=== PATIENT | female | born 1965 | race Two or more races ===

== ENCOUNTER 2018-05-06 20:30 | Inpatient (IN) | payer OTHER, MEDICAID ==
[~2018-05-06] VITALS: Ht 157.5 cm; Wt 59.1 kg
[~2018-05-06 20:30] MED LIST: /ZOLP6ER; AMBI10TA PO; CLON0.5T8 PO; EFFE75CA2 PO; HYDR-3363 PO; HYDR10TA3; KLON1TAB; KLON1TAB PO; KLON2TAB PO; MINI1CAP PO; MINI2CAP PO; MIRA3350 PO; PAXI20TA3 PO; PRESTIQ; SERO200T; SERT25TA PO; TRAZO50TA PO
[2018-05-06] MEDS ORDERED: SERT-155 PO (20:50)
[2018-05-06] MEDS ORDERED: CLON2TAB7 PO (20:50)
[2018-05-06] MEDS ORDERED: ZOLP10TA2 PO (20:50)
[2018-05-06] MEDS ORDERED: BUPR100T3 (20:50)
[2018-05-06 21:27] LABS: HEMATOCRIT 38.2 % (36.0-47.0); HEMOGLOBIN 12.3 g/dl (12.0-15.5); MEAN CORPUSCULAR HEMOGLOBIN 26.8 pg (27.0-33.0); MEAN CORPUSCULAR HGB CONC 32.2 g/dl (32.0-36.5); MEAN CORPUSCULAR VOLUME 83.2 fl (80.0-96.0); PLATELET COUNT, AUTOMATED 213 10^3/uL (150-450); RED BLOOD COUNT 4.59 10^6/uL (4.00-5.40); WHITE BLOOD COUNT 5.1 10^3/uL (4.0-10.0)
[2018-05-06] MEDS ORDERED: PRAZ1CAP PO (21:56)
[2018-05-06] MEDS ORDERED: BUPR15TA PO (21:59)
[2018-05-06 22:01] LABS: ACETAMINOPHEN LEVEL < 2.0 UG/ML (10.0-30.0); ALBUMIN 3.6 GM/DL (3.2-5.2); ALT/SGPT 15 U/L (12-78); BILIRUBIN,DIRECT 0.2 MG/DL (0.0-0.2); BILIRUBIN,TOTAL 0.7 MG/DL (0.2-1.0); BLOOD UREA NITROGEN 25 MG/DL (7-18); CALCIUM LEVEL 8.2 MG/DL (8.5-10.1); CARBON DIOXIDE LEVEL 28 MEQ/L (21-32); CHLORIDE LEVEL 108 MEQ/L (98-107); CREATININE FOR GFR 0.74 MG/DL (0.55-1.30); ETHYL ALCOHOL (ETHANOL) < 0.003 % (0.000-0.010); GLOMERULAR FILTRATION RATE > 60.0 (>51); GLUCOSE, FASTING 103 MG/DL (70-100); POTASSIUM SERUM 4.1 MEQ/L (3.5-5.1); SALICYLATE LEVEL 2.2 MG/DL (5.0-30.0); SODIUM LEVEL 143 MEQ/L (136-145); THYROID STIMULATING HORMONE 0.948 uIU/ML (0.358-3.740); TOTAL PROTEIN 6.6 GM/DL (6.4-8.2)
[2018-05-06 22:11] LABS: AMPHETAMINES LEVEL URINE NEGATIVE (NEGATIVE); BARBITURATES URINE NEGATIVE (NEGATIVE); BENZODIAZEPINES URINE NEGATIVE (NEGATIVE); CANNABINOIDS URINE NEGATIVE (NEGATIVE); COCAINE METABOLITE URINE NEGATIVE (NEGATIVE); METHADONE URINE NEGATIVE (NEGATIVE); OPIATES URINE NEGATIVE (NEGATIVE); PHENCYCLIDINE URINE NEGATIVE (NEGATIVE)
[2018-05-06] MEDS ORDERED: MAALOX 30 ML SUSP *UDC PO PRN (22:30)
[2018-05-06] MEDS ORDERED: MOM 30ML SUSPENSION UDC PO PRN (22:30)
[2018-05-06] MEDS ORDERED: traZODone 50 MG TAB PO PRN (22:30)
[2018-05-07 02:08] VITALS: BP 131/62
[2018-05-07] MEDS ORDERED: buPROPion **SR TABLET** (ZYBAN) 150MG PO SCH (09:00)
[2018-05-07 12:37] VITALS: BP 121/68
[2018-05-07] MEDS: SERTRALINE HCL 50 MG TAB PO SCH (13:21)
[2018-05-07] MEDS: buPROPion (WELLBUTRIN SR) 100 MG SR TAB PO SCH ×2 (13:21→21:52)
[2018-05-07] MEDS ORDERED: clonazePAM 1 MG TAB PO SCH (16:00)
[2018-05-07 18:29] VITALS: BP 107/58
[2018-05-07] MEDS ORDERED: PRAZOSIN 1 MG CAP PO SCH (21:00)
[2018-05-07] MEDS: PRAZOSIN 1 MG CAP PO SCH ×2 (21:00→21:10)
[2018-05-07] MEDS: clonazePAM 1 MG TAB PO PRN (21:52)
[2018-05-07] MEDS ORDERED: MOM 30ML SUSPENSION UDC PO PRN (22:30)
[2018-05-07] MEDS ORDERED: ACETAMINOPHEN TAB 650MG DOSE (2X325MG) PO PRN (22:30)
[2018-05-07] MEDS ORDERED: MAALOX 30 ML SUSP *UDC PO PRN (22:30)
[2018-05-07] MEDS ORDERED: traZODone 50 MG TAB PO PRN (22:30)
[2018-05-08 07:01] VITALS: BP 94/52
[2018-05-08] MEDS ORDERED: NICOTINE 21MG/24HR 1 EA TRANSDERMAL TD SCH (09:00)
[2018-05-08] MEDS: SERTRALINE HCL 50 MG TAB PO SCH (09:29)
[2018-05-08] MEDS: buPROPion (WELLBUTRIN SR) 100 MG SR TAB PO SCH ×2 (09:29→21:18)
[2018-05-08] MEDS: ACETAMINOPHEN TAB 650MG DOSE (2X325MG) PO PRN (09:35)
[2018-05-08] MEDS: clonazePAM 1 MG TAB PO PRN ×2 (09:39→21:19)
[2018-05-08 11:31] VITALS: BP 117/64
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
[2018-05-08 18:06] VITALS: BP 93/51
[2018-05-08 22:00] VITALS: BP 130/92
[2018-05-08 22:35] VITALS: BP 128/86
[2018-05-08] MEDS ORDERED: PRAZOSIN 1 MG CAP PO ONE (22:45)
[2018-05-09 03:00] VITALS: BP 105/56
[2018-05-09] MEDS: clonazePAM 1 MG TAB PO PRN ×3 (03:30→23:12)
[2018-05-09] MEDS: buPROPion (WELLBUTRIN SR) 100 MG SR TAB PO SCH ×2 (09:53→23:11)
[2018-05-09] MEDS: SERTRALINE HCL 50 MG TAB PO SCH (09:53)
[2018-05-09] MEDS: IBUPROFEN 400 MG TAB PO PRN (09:54)
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
--- NOTE | 2018-05-09 15:50 | HPE ---
DATE OF ADMISSION: 05/06/2018 HISTORY OF PRESENT ILLNESS: Please refer to psychiatric history and evaluation for further details on this admission. This examination and history is intended for medical issues, which may need treatment, followup or consultation on this 53-year-old female. ALLERGIES: CODEINE, ERYTHROMYCIN, MORPHINE, QUETIAPINE, TRAMADOL. HOME MEDICATIONS: - Ambien 10 mg by mouth at night - Wellbutrin 150 mg by mouth twice a day - clonazepam 2 mg by mouth four times a day - prazosin 1 mg at night - sertraline 50 mg by mouth daily PAST MEDICAL HISTORY: Cervical cancer, history of LEEP procedure, cerebral palsy, endometriosis, history of irritable bowel syndrome with constipation, history of chronic hepatitis C, history of substance abuse, tobacco abuse, anxiety, depression, posttraumatic stress disorder (PTSD), insomnia. PAST SURGICAL HISTORY: Surgery in 03/2007 for cerebral palsy. History of exploratory laparoscopy. Lysis of adhesions. Tonsillectomy. LEEP procedure. SOCIAL HISTORY: She is . She smokes 1 to 1-1/2 packs per day. ETOH is monthly one to two drinks. FAMILY HISTORY: Noncontributory. REVIEW OF SYSTEMS: Ten systems review was done. The patient was feeling well and had no specific complaints. No complaint of headache. No blurry or double vision. No fever. No chills. No tinnitus. No hoarseness. No difficulty swallowing. No lightheadedness. No vertigo. CARDIOVASCULAR: No complaints of chest pain, shortness of breath, palpitations, or edema. RESPIRATORY: No chronic cough. No sputum production. No hemoptysis. No orthopnea. No wheeze. GASTROINTESTINAL: No nausea, vomiting, diarrhea. No hematochezia. No melena. No complaints of abdominal pain. History of irritable bowel syndrome. GENITOURINARY: No hematuria, dysuria, frequency. MUSCULOSKELETAL: No joint redness or swelling. Peripheral pulses equal and palpable bilaterally. ENDOCRINE: No polyuria, polydipsia, polyphagia. HEMATOLOGIC: No history of anemia. NEUROLOGIC: No history of seizures. History of TBI, history of chronic migraines. PSYCHOLOGICAL: See psychiatric history and physical. PHYSICAL EXAMINATION: GENERAL: 53-year-old cooperative female in no acute distress. Height 66 inches, weight 59.9 kg, Body Mass Index (BMI) 23.8. The patient is alert and oriented. HEENT: Pupils are equal and reactive to light. Extraocular muscles intact. Sclerae clear. Conjunctivae normal. No facial asymmetry. Pharynx, gums and tongue pink and moist. Tongue is midline. NECK: Supple without lymphadenopathy, thyromegaly or goiter. Carotids 2+ without bruit. CHEST: Clear to auscultation without wheeze or retraction. HEART: Regular. ABDOMEN: Benign. Bowel sounds positive. GENITOURINARY/RECTAL: Not done. EXTREMITIES: No clubbing, cyanosis, and edema. IMPRESSION/PLAN: 1. Psychiatric plan per psychiatry. 2. Nicotine dependence, patch available. 3. Left anterior upper thigh, scabbed and no redness. 4. History of cerebral palsy.
--- NOTE | 2018-05-09 17:46 | MHIPN ---
DATE: 05/08/2018 CHIEF COMPLAINT: She feels a bit anxious. SUBJECTIVE: She is seen for followup. She indicates she slept a bit, but was disturbed by another patient's agitation last night. She says appetite is okay. Could not recall any nightmares. The prazosin was held as her blood pressure was quite low yesterday. MENTAL STATUS EXAMINATION: She is sitting up in bed, cooperative. There is no agitation. No psychomotor retardation. She is coherent. Affect is reactive. Denies any active suicidal thoughts or intents. No homicidal ideas or intents. Currently, no evidence of psychosis. Judgment and insight remain compromised. ASSESSMENT: 1. Posttraumatic stress disorder. 2. Benzodiazepine use disorder by history. 3. History of trauma. PLAN: I would suggest continuing current care, but we will look at holding off on the prazosin if her blood pressures remain low. It is preferable that she not get the prazosin on low pressures. She should be encouraged to participate in activities on the unit, and I would suggest looking for collateral information as well, particularly tomorrow, when the outpatient clinics are open. Continue clonazepam at the current dose for now. She will be seeing the treatment team, as well as the assigned psychiatrist tomorrow. VITAL SIGNS: Blood pressure 93/51, pulse 77, temperature is 98.9. We will discontinue the prazosin for now. This will be reassessed tomorrow.
[2018-05-10 06:53] VITALS: BP 101/57
[2018-05-10] MEDS: SERTRALINE HCL 50 MG TAB PO SCH (09:25)
[2018-05-10] MEDS: buPROPion (WELLBUTRIN SR) 100 MG SR TAB PO SCH (09:25)
[2018-05-10] MEDS: clonazePAM 1 MG TAB PO PRN ×2 (09:25→22:05)
--- NOTE | 2018-05-10 16:58 | MHIPN ---
DATE: 05/10/2018 VITAL SIGNS: Temperature 96.9, pulse 57, respirations 12, blood pressure 101/57. CURRENT MEDICATIONS: - Klonopin 2 mg three times a day as needed - Zoloft 50 mg in the morning - Wellbutrin SR 100 mg twice a day HISTORY OF PRESENT ILLNESS: This is a 53-year-old white female, , diagnosis of posttraumatic stress disorder (PTSD), benzodiazepine abuse disorder and cerebral palsy. The patient has a criminal history for selling crack cocaine. The patient is on parole and attended [facility] instead of going back to custodial for a 3 to 5 year period. The patient reports feeling depressed at the time of admission, feeling helpless and hopeless with suicidal ideation. This is due to various situational stressors, which have resolved. She does report a prominent history of PTSD, which appears to be her major diagnosis. The patient has a history of benzodiazepine abuse and surprisingly was placed back on Klonopin upon discharge from [facility]. The patient is educated that current medical practice is that benzodiazepines, such as clonazepam, are not recommended for treatment of PTSD especially with a history of abuse. The patient is vague about her anxiety symptoms. Since taking the high dose Klonopin on the unit, the patient is isolating to her room, spending most of her day in bed. Of interest is that the toxicology screen was negative for benzodiazepine despite being prescribed a high dosage prior to admission. The patient may be diverting her Klonopin supply. The patient is involved in [employer]. She sees a PHD psychologist/therapist and has a psychiatrist in the community. THe patient is currently being prescribed Wellbutrin 100 mg twice a day. Her second dosage is given at bedtime, which is contraindicated, as it is a stimulant and apparently is adversely affecting her sleep patterns. The patient does not like the Wellbutrin claiming that it gives her stiffness in her jaw. MENTAL STATUS EXAMINATION: The patient is seen with the psychiatric nurse. The patient laughs easily, she smiles easily. Depressive symptoms have resolved. She is not depressed or suicidal. Anxiety appears minimal. The patient does have trouble walking due to her cerebral palsy. She is not psychotic. Insight and judgment are poor. There are no current signs of dangerousness. The patient is currently not psychotic. No signs of organicity. DIAGNOSES: 1. Posttraumatic stress disorder (PTSD). 2. Benzodiazepine use disorder. 3. Cerebral palsy. PLAN: Discontinue the nighttime dose of Wellbutrin. Discharge home tomorrow back to the community. The patient was warned about the use of benzodiazepine not recommended for PTSD cases. The patient to restart low dose of Minipress. MTDD
[2018-05-10 18:00] VITALS: BP 119/73
[2018-05-10] MEDS ORDERED: PRAZOSIN 1 MG CAP PO SCH (21:00)
[2018-05-10 21:59] VITALS: BP 119/73
[2018-05-11] MEDS: IBUPROFEN 400 MG TAB PO PRN (01:20)
[2018-05-11] MEDS: ACETAMINOPHEN TAB 650MG DOSE (2X325MG) PO PRN (01:20)
[2018-05-11] MEDS ORDERED: IBUPROFEN 600 MG TAB PO ONE (06:15)
[2018-05-11 07:05] VITALS: BP 116/65
[2018-05-11] MEDS ORDERED: BUPR10TASR PO (08:20)
[2018-05-11] MEDS: SERTRALINE HCL 50 MG TAB PO SCH (09:00)
[2018-05-11] MEDS ORDERED: buPROPion (WELLBUTRIN SR) 100 MG SR TAB PO SCH (09:00)
--- NOTE | 2018-05-12 16:43 | MHDS ---
DATE OF ADMISSION: 05/06/2018 DATE OF DISCHARGE: 05/11/2018 VITAL SIGNS: Temperature 97.0, pulse 76, respirations 14, blood pressure 116/65. LABORATORY DATA: CBC and differential within normal limits except for low MCH at 26.8. Serum chemistry showed elevated chloride at 108, BUN elevated at 25, serum calcium was low at 8.2. Toxicology screen was negative including a negative benzodiazepine screen. DISCHARGE DIAGNOSES: 1. Posttraumatic stress disorder (PTSD). 2. Benzodiazepine sedative use disorder. 3. Cerebral palsy. 4. Depressive disorder unspecified. CHIEF COMPLAINT: Depression with suicidal ideation. HISTORY OF PRESENT ILLNESS: This is a 53-year-old white female, . She has a criminal history for selling crack cocaine. The patient is on parole and violated her parole requiring attendance at [facility] recently. The patient was off her benzodiazepines while at [facility], but was surprisingly placed back on her Klonopin upon discharge by her outpatient provider. Patient was seen at admission by Dr. Woody and then for followup by Dr. Orozco. Patient felt depressed at time of admission, feeling helpless and hopeless. Patient had various situational stressors which have resolved. Her primary diagnosis is that of PTSD. Patient is warned that benzodiazepines, such as Klonopin, are contraindicated for patients with PTSD. Also of interest is that her benzodiazepine screen at time of admission was negative, suggesting that she is diverting her clonazepam. PROGRESS ON THE UNIT: Patient was prescribed Klonopin 2 mg three times a day by Dr. Woody. The patient subsequently spent most of her admission in bed sedated. She spent little time attending groups or interacting with her peers. Patient was confronted about her benzodiazepine use and abuse, but she minimized it. She adamantly demanded the clonazepam, insisting that she needed to take it. In any event, the patient's depressive symptoms quickly resolved on the unit, her situational stressors resolved, her affect improved markedly, and she appeared appropriate for outpatient treatment. MENTAL STATUS EXAMINATION: At time of discharge, mood and affect appeared quite good, affect was bright, she was not depressed, she was not suicidal, she was not homicidal. Insight and judgment appeared limited, but no acute signs of dangerousness. Patient showed no signs of psychosis, she was not hearing voices, no paranoia or thought disorder. Grooming and hygiene appeared good. Memory functions appeared intact. The patient does have cerebral palsy and was able to navigate reasonably well. ASSESSMENT: The patient appears to have reached maximal hospital benefit. It is my professional recommendation that her outpatient provider wean her off the benzodiazepines. PLAN: Patient discharged to outpatient mental health services.
[2018-05-19] MEDS ORDERED: BUPR100T3 PO (21:14)
[2018-05-24] MEDS ORDERED: SERT-138 PO (08:49)
[2018-05-24] MEDS ORDERED: MINI1CAP PO (08:49)
[2018-05-27] MEDS ORDERED: PRAZ1CAP PO (21:15)
[2018-05-27] MEDS ORDERED: SERT-138 PO (21:16)
== END 2018-05-11 11:40 | disposition home or self-care (01) | DRG 882 ==
LOC: M ED 20:30 → M ED INP 22:29 → M PSY 05-07 01:12
PROVIDERS: ADMIT Psychiatry & Neurology Psychiatry; ATTEND Psychiatry & Neurology Psychiatry
DX: F43.10 Post-traumatic stress disorder, unspecified (principal); R45.851 Suicidal ideations; G80.9 Cerebral palsy, unspecified; F32.9 Major depressive disorder, single episode, unspecified; F13.90 Sedative, hypnotic, or anxiolytic use, unspecified, uncomplicated; Z88.5 Allergy status to narcotic agent; Z88.8 Allergy status to other drugs, medicaments and biological substances; Z79.899 Other long term (current) drug therapy; F17.200 Nicotine dependence, unspecified, uncomplicated

== ENCOUNTER 2018-05-14 21:02 | Inpatient (IN) | payer OTHER, MEDICAID ==
[~2018-05-14] VITALS: Ht 160 cm; Wt 62.4 kg
[~2018-05-14 21:02] MED LIST changes: +BUPR100T3; +BUPR10TASR PO; +BUPR15TA PO; +CLON2TAB7 PO; +PRAZ1CAP PO; +SERT-155 PO; +ZOLP10TA2 PO
[2018-05-14 22:19] LABS: HEMATOCRIT 39.4 % (36.0-47.0); HEMOGLOBIN 12.6 g/dl (12.0-15.5); MEAN CORPUSCULAR HEMOGLOBIN 26.8 pg (27.0-33.0); MEAN CORPUSCULAR VOLUME 83.8 fl (80.0-96.0); PLATELET COUNT, AUTOMATED 204 10^3/uL (150-450)
[2018-05-14] MEDS ORDERED: AMBI10TA PO (22:35)
[2018-05-14 22:50] LABS: ACETAMINOPHEN LEVEL < 2.0 UG/ML (10.0-30.0); ALBUMIN 3.7 GM/DL (3.2-5.2); ALT/SGPT 16 U/L (12-78); BILIRUBIN,DIRECT 0.2 MG/DL (0.0-0.2); BILIRUBIN,TOTAL 0.7 MG/DL (0.2-1.0); BLOOD UREA NITROGEN 21 MG/DL (7-18); CALCIUM LEVEL 8.2 MG/DL (8.5-10.1); CARBON DIOXIDE LEVEL 25 MEQ/L (21-32); CHLORIDE LEVEL 108 MEQ/L (98-107); CREATININE FOR GFR 1.09 MG/DL (0.55-1.30); ETHYL ALCOHOL (ETHANOL) 0.003 % (0.000-0.010); GLOMERULAR FILTRATION RATE 56.3 (>51); GLUCOSE, FASTING 145 MG/DL (70-100); POTASSIUM SERUM 3.9 MEQ/L (3.5-5.1); SALICYLATE LEVEL 1.7 MG/DL (5.0-30.0); SODIUM LEVEL 143 MEQ/L (136-145); TOTAL PROTEIN 6.8 GM/DL (6.4-8.2)
[2018-05-14 22:52] LABS: AMPHETAMINES LEVEL URINE NEGATIVE (NEGATIVE); BARBITURATES URINE NEGATIVE (NEGATIVE); BENZODIAZEPINES URINE POSITIVE (NEGATIVE); CANNABINOIDS URINE NEGATIVE (NEGATIVE); COCAINE METABOLITE URINE NEGATIVE (NEGATIVE); METHADONE URINE NEGATIVE (NEGATIVE); OPIATES URINE NEGATIVE (NEGATIVE); PHENCYCLIDINE URINE NEGATIVE (NEGATIVE)
[2018-05-14] MEDS ORDERED: traZODone 50 MG TAB PO PRN (23:30)
[2018-05-14] MEDS ORDERED: ACETAMINOPHEN TAB 650MG DOSE (2X325MG) PO PRN (23:30)
[2018-05-14] MEDS ORDERED: MOM 30ML SUSPENSION UDC PO PRN (23:30)
[2018-05-14] MEDS ORDERED: MAALOX 30 ML SUSP *UDC PO PRN (23:30)
[2018-05-14] MEDS ORDERED: GI COCKTAIL 50ML BTL(HYOSCYAMINE/MAALOX/LIDOCAINE VISCOUS)(1:3:1) As Ordered ONE (23:34)
[2018-05-14] MEDS ORDERED: BUPR100T3 PO (23:39)
[2018-05-14] MEDS ORDERED: GI COCKTAIL 50ML BTL(HYOSCYAMINE/MAALOX/LIDOCAINE VISCOUS)(1:3:1) PO ONE (23:45)
[2018-05-15 00:13] VITALS: BP 110/66
[2018-05-15] MEDS: clonazePAM 0.5 MG TAB PO PRN ×2 (15:29→21:55)
[2018-05-15] MEDS: SERTRALINE HCL 50 MG TAB PO SCH (15:29)
[2018-05-15 18:00] VITALS: BP 96/52
[2018-05-15 20:55] VITALS: BP 106/64
[2018-05-15] MEDS ORDERED: PRAZOSIN 1 MG CAP PO SCH (21:00)
[2018-05-15] MEDS ORDERED: zolPIDEM TARTRATE 10MG TAB PO SCH (21:00)
[2018-05-16 06:19] VITALS: BP 100/55
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
[2018-05-16] MEDS: SERTRALINE HCL 50 MG TAB PO SCH ×2 (09:00→10:00)
[2018-05-16] MEDS: clonazePAM 0.5 MG TAB PO PRN (09:59)
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
--- NOTE | 2018-05-17 20:27 | HPE ---
DATE OF ADMISSION: 05/14/2018 HISTORY OF PRESENT ILLNESS: Please refer to psychiatric history and evaluation for further details on this admission. This examination and history is intended for medical issues, which may need treatment, followup or consult on this 53-year-old female. ALLERGIES: CODEINE, ERYTHROMYCIN, MORPHINE, SEROQUEL, TRAMADOL. HOME MEDICATIONS: - bupropion 100 mg by mouth daily - clonazepam 2 mg by mouth three times a day - prazosin 3 mg by mouth at bedtime - sertraline 50 mg by mouth daily - zolpidem 10 mg by mouth daily SOCIAL HISTORY: She is . She smokes 1-1/2 packs of cigarettes per day. PAST MEDICAL HISTORY: 1. Cervical cancer. 2. History of a loop electrosurgical excision procedure (LEEP) procedure. 3. Cerebral palsy. 4. Endometriosis. 5. History of irritable bowel syndrome with constipation. 6. History of chronic hepatitis C. She had started treatment. Was not quite finished when she left assisted. She has a followup scheduled with Dr. Orlando. 7. History of substance abuse. 8. Tobacco abuse. 9. Anxiety. 10. Depression. 11. Post-traumatic stress disorder (PTSD). 12. Insomnia. PAST SURGICAL HISTORY: 1. Surgery for cerebral palsy 03/2007. 2. History of exploratory laparoscopy and lysis of adhesions. 3. Tonsillectomy. 4. Loop electrosurgical excision procedure (LEEP) procedure. FAMILY HISTORY: Family history is noncontributory. LABORATORY STUDIES: White blood cell (WBC): Hemoglobin and hematocrit (H and H), platelets normal. Sodium 143, potassium 3.9, chloride 108, CO2 25, anion gap 10, BUN 21, creatinine 1.09. Nonfasting glucose 145, calcium 8.2. Toxicology was positive for benzodiazepines. REVIEW OF SYSTEMS: A 10-systems review was done and was unremarkable. The patient had no specific complaints. PHYSICAL EXAMINATION: A 53-year-old cooperative female in no acute distress. Height: 63 inches. Weight 62.4 kg. Body mass index (BMI): 24.4. Blood pressure (BP) 110/66, pulse 83, respirations 14, temperature 97.3, oxygen saturation 97% on room air. The patient is alert and oriented times three. Pupils equal and react to light. Extraocular muscles (EOMs) intact. Cornea and sclerae clear. Conjunctiva is normal. No facial asymmetry. Pharynx, tongue and gums are pink and moist. Tongue is midline. Neck is supple without lymphadenopathy. No thyromegaly. No goiter. Carotids are 2+ without bruits. CHEST: Clear to auscultation with wheeze or retraction. HEART: Is regular. ABDOMEN: Benign. Bowel sounds positive. GENITOURINARY ()/RECTAL: Not done. EXTREMITIES: Show equal strength. No cyanosis, clubbing, or edema. Gait is a . SKIN: Is warm and dry. IMPRESSION AND PLAN: 1. Psychiatric plan per psychiatry. 2. History of cerebral palsy. 3. Nicotine dependence. Patch available. 4. The patient states that she started a hepatitis B series in the senior care. She states that she is due for her third dose. Discussed with her we would contact the senior care to see if we could obtain the dates of her injections and if it was due give her the third hepatitis B. 5. Chronic hepatitis C. Follow with Dr. Orlando.
[2018-05-19] MEDS ORDERED: BUPR100T3 PO (21:14)
[2018-05-24] MEDS ORDERED: SERT-138 PO (08:49)
[2018-05-24] MEDS ORDERED: MINI1CAP PO (08:49)
[2018-05-27] MEDS ORDERED: PRAZ1CAP PO (21:15)
[2018-05-27] MEDS ORDERED: SERT-138 PO (21:16)
== END 2018-05-16 14:00 | disposition home or self-care (01) | DRG 882 ==
LOC: M ED 21:02 → M ED INP 23:18 → M PSY 05-15 00:04
PROVIDERS: ADMIT Psychiatry & Neurology Psychiatry; ATTEND Psychiatry & Neurology Psychiatry
DX: F43.10 Post-traumatic stress disorder, unspecified (principal); R45.851 Suicidal ideations; F32.9 Major depressive disorder, single episode, unspecified; G80.9 Cerebral palsy, unspecified; F15.90 Other stimulant use, unspecified, uncomplicated; F41.9 Anxiety disorder, unspecified; G47.00 Insomnia, unspecified; F17.200 Nicotine dependence, unspecified, uncomplicated; B18.2 Chronic viral hepatitis C; Z85.41 Personal history of malignant neoplasm of cervix uteri

== ENCOUNTER 2018-05-19 18:41 | Inpatient (IN) | payer MEDICAID ==
[2018-05-19 19:18] LABS: HEMATOCRIT 37.6 % (36.0-47.0); HEMOGLOBIN 12.5 g/dl (12.0-15.5); MEAN CORPUSCULAR HEMOGLOBIN 27.4 pg (27.0-33.0); MEAN CORPUSCULAR HGB CONC 33.2 g/dl (32.0-36.5); MEAN CORPUSCULAR VOLUME 82.3 fl (80.0-96.0); PLATELET COUNT, AUTOMATED 203 10^3/uL (150-450); RED BLOOD COUNT 4.57 10^6/uL (4.00-5.40); RED CELL DISTRIBUTION WIDTH 13.6 % (11.5-14.5); WHITE BLOOD COUNT 8.4 10^3/uL (4.0-10.0)
[2018-05-19 19:48] LABS: ACETAMINOPHEN LEVEL < 2.0 UG/ML (10.0-30.0); ALBUMIN 3.9 GM/DL (3.2-5.2); ALBUMIN/GLOBULIN RATIO 1.22 (1.00-1.93); ALKALINE PHOSPHATASE 88 U/L (45-117); ALT/SGPT 17 U/L (12-78); ANION GAP 9 MEQ/L (8-16); AST/SGOT 25 U/L (7-37); BILIRUBIN,DIRECT 0.2 MG/DL (0.0-0.2); BILIRUBIN,TOTAL 0.7 MG/DL (0.2-1.0); BLOOD UREA NITROGEN 19 MG/DL (7-18); CALCIUM LEVEL 8.6 MG/DL (8.5-10.1); CARBON DIOXIDE LEVEL 26 MEQ/L (21-32); CHLORIDE LEVEL 106 MEQ/L (98-107); CREATININE FOR GFR 0.97 MG/DL (0.55-1.30); ETHYL ALCOHOL (ETHANOL) 0.004 % (0.000-0.010); GLOMERULAR FILTRATION RATE > 60.0 (>51); GLUCOSE, FASTING 135 MG/DL (70-100); SALICYLATE LEVEL < 1.7 MG/DL (5.0-30.0); SODIUM LEVEL 141 MEQ/L (136-145); TOTAL PROTEIN 7.1 GM/DL (6.4-8.2)
[2018-05-19 19:59] LABS: AMPHETAMINES LEVEL URINE NEGATIVE (NEGATIVE); BARBITURATES URINE NEGATIVE (NEGATIVE); BENZODIAZEPINES URINE POSITIVE (NEGATIVE); CANNABINOIDS URINE NEGATIVE (NEGATIVE); COCAINE METABOLITE URINE NEGATIVE (NEGATIVE); METHADONE URINE NEGATIVE (NEGATIVE); OPIATES URINE NEGATIVE (NEGATIVE); PHENCYCLIDINE URINE NEGATIVE (NEGATIVE)
[2018-05-19] MEDS: CALCIUM CARBONATE 500 MG CHEW U/D PO (20:35)
[2018-05-19] MEDS ORDERED: ACETAMINOPHEN TAB 650MG DOSE (2X325MG) PO (21:00)
[2018-05-19] MEDS ORDERED: MOM 30ML SUSPENSION UDC PO (21:00)
[2018-05-19] MEDS ORDERED: MAALOX 30 ML SUSP *UDC PO (21:00)
[2018-05-19] MEDS: PRAZOSIN 1 MG CAP PO (23:37)
[2018-05-19] MEDS: zolPIDEM TARTRATE 10MG TAB PO (23:38)
[2018-05-19] MEDS: buPROPion (WELLBUTRIN SR) 100 MG SR TAB PO (23:38)
[2018-05-19] MEDS: clonazePAM 1 MG TAB PO (23:38)
[2018-05-20] MEDS: CALCIUM CARBONATE 500 MG CHEW U/D PO (02:37)
[2018-05-20] MEDS: buPROPion (WELLBUTRIN SR) 100 MG SR TAB PO (09:00)
[2018-05-20] MEDS: clonazePAM 1 MG TAB PO ×2 (09:19→22:02)
[2018-05-20] MEDS: SERTRALINE HCL 50 MG TAB PO (09:19)
[2018-05-20] MEDS: ONDANSETRON 4 MG ORAL DISINTEGRATING TAB (Q0162 PER 1MG) PO ×2 (10:09→21:30)
[2018-05-20] MEDS: EXCEDRIN MIGRAINE TABLET PO (10:14)
[2018-05-20 11:29] LABS: HCG, SERUM QUALITATIVE NEGATIVE (NEGATIVE)
[2018-05-20 11:30] LABS: CONTROL LINE HCG INT CTR LINE PRESENT
[2018-05-20] MEDS ORDERED: clonazePAM 1 MG TAB PO (16:09)
[2018-05-20] MEDS: zolPIDEM TARTRATE 10MG TAB PO (22:02)
[2018-05-20] MEDS: PRAZOSIN 1 MG CAP PO (22:02)
[2018-05-21] MEDS: SERTRALINE 100 MG TAB PO (09:00)
[2018-05-21] MEDS ORDERED: clonazePAM 1 MG TAB PO (09:00)
[2018-05-21] MEDS: clonazePAM 0.5 MG TAB PO ×2 (09:38→15:53)
[2018-05-21] MEDS: zolPIDEM TARTRATE 10MG TAB PO (20:20)
[2018-05-21] MEDS: EXCEDRIN MIGRAINE TABLET PO (20:20)
[2018-05-21] MEDS: PRAZOSIN 1 MG CAP PO (20:22)
[2018-05-21] MEDS: clonazePAM 1 MG TAB PO (20:40)
[2018-05-21] MEDS ORDERED: CALCIUM CARBONATE 500 MG CHEW U/D PO (21:15)
[2018-05-22] MEDS: LORazepam 2 MG TAB PO (03:23)
[2018-05-22] MEDS: diphenhydrAMINE 50 MG CAP PO (03:24)
[2018-05-22] MEDS: HALOPERIDOL 10 MG TAB PO (03:24)
[2018-05-22] MEDS: clonazePAM 1 MG TAB PO ×3 (09:00→22:08)
[2018-05-22] MEDS: SERTRALINE 100 MG TAB PO (16:09)
[2018-05-22] MEDS: zolPIDEM TARTRATE 10MG TAB PO (22:08)
[2018-05-22] MEDS: PRAZOSIN 1 MG CAP PO (22:12)
[2018-05-23] MEDS: clonazePAM 1 MG TAB PO ×3 (10:09→21:00)
[2018-05-23] MEDS: SERTRALINE 100 MG TAB PO (10:09)
[2018-05-23] MEDS: IBUPROFEN 400 MG TAB PO (10:10)
[2018-05-23] MEDS: zolPIDEM TARTRATE 10MG TAB PO (21:00)
[2018-05-23] MEDS: PRAZOSIN 1 MG CAP PO (21:00)
[2018-05-24] MEDS: EXCEDRIN MIGRAINE TABLET PO (05:56)
[2018-05-24] MEDS: clonazePAM 1 MG TAB PO (08:56)
[2018-05-24] MEDS: SERTRALINE 100 MG TAB PO (08:56)
== END 2018-05-24 11:15 | disposition home or self-care (01) | DRG 755 ==
LOC: M PSY 05-20 22:18 → M ED 18:41 → M ED INP 20:55 → M PSY 21:50
DX: F43.10 Post-traumatic stress disorder, unspecified (principal); F32.9 Major depressive disorder, single episode, unspecified; G80.9 Cerebral palsy, unspecified; F15.90 Other stimulant use, unspecified, uncomplicated; Z79.899 Other long term (current) drug therapy; Z88.5 Allergy status to narcotic agent; Z88.1 Allergy status to other antibiotic agents; Z88.8 Allergy status to other drugs, medicaments and biological substances; Z85.41 Personal history of malignant neoplasm of cervix uteri; F17.200 Nicotine dependence, unspecified, uncomplicated; F41.9 Anxiety disorder, unspecified; G47.00 Insomnia, unspecified; B18.2 Chronic viral hepatitis C; K59.00 Constipation, unspecified

== ENCOUNTER 2018-05-27 19:38 | Inpatient (IN) | payer MEDICAID ==
[2018-05-27 20:34] LABS: HEMATOCRIT 39.8 % (36.0-47.0); HEMOGLOBIN 12.7 g/dl (12.0-15.5); MEAN CORPUSCULAR HGB CONC 31.9 g/dl (32.0-36.5); MEAN CORPUSCULAR VOLUME 84.5 fl (80.0-96.0); PLATELET COUNT, AUTOMATED 196 10^3/uL (150-450); RED BLOOD COUNT 4.71 10^6/uL (4.00-5.40); RED CELL DISTRIBUTION WIDTH 13.7 % (11.5-14.5); WHITE BLOOD COUNT 6.2 10^3/uL (4.0-10.0)
[2018-05-27 21:09] LABS: AMPHETAMINES LEVEL URINE NEGATIVE (NEGATIVE); BARBITURATES URINE NEGATIVE (NEGATIVE); BENZODIAZEPINES URINE POSITIVE (NEGATIVE); CANNABINOIDS URINE NEGATIVE (NEGATIVE); COCAINE METABOLITE URINE NEGATIVE (NEGATIVE); METHADONE URINE NEGATIVE (NEGATIVE); OPIATES URINE NEGATIVE (NEGATIVE); PHENCYCLIDINE URINE NEGATIVE (NEGATIVE)
[2018-05-27 21:12] LABS: ACETAMINOPHEN LEVEL < 2.0 UG/ML (10.0-30.0); ALBUMIN 4.1 GM/DL (3.2-5.2); ALBUMIN/GLOBULIN RATIO 1.32 (1.00-1.93); ALKALINE PHOSPHATASE 86 U/L (45-117); ALT/SGPT 19 U/L (12-78); ANION GAP 9 MEQ/L (8-16); AST/SGOT 19 U/L (7-37); BILIRUBIN,DIRECT 0.2 MG/DL (0.0-0.2); BILIRUBIN,TOTAL 0.9 MG/DL (0.2-1.0); BLOOD UREA NITROGEN 15 MG/DL (7-18); CALCIUM LEVEL 8.7 MG/DL (8.5-10.1); CARBON DIOXIDE LEVEL 30 MEQ/L (21-32); CHLORIDE LEVEL 103 MEQ/L (98-107); CREATININE FOR GFR 1.14 MG/DL (0.55-1.30); ETHYL ALCOHOL (ETHANOL) < 0.003 % (0.000-0.010); GLOMERULAR FILTRATION RATE 53.5 (>51); GLUCOSE, FASTING 145 MG/DL (70-100); POTASSIUM SERUM 3.7 MEQ/L (3.5-5.1); SALICYLATE LEVEL < 1.7 MG/DL (5.0-30.0); SODIUM LEVEL 142 MEQ/L (136-145); TOTAL PROTEIN 7.2 GM/DL (6.4-8.2)
[2018-05-27] MEDS ORDERED: MOM 30ML SUSPENSION UDC PO (22:45)
[2018-05-27] MEDS ORDERED: MAALOX 30 ML SUSP *UDC PO (22:45)
[2018-05-27] MEDS ORDERED: zolPIDEM TARTRATE 5 MG TAB PO (22:45)
[2018-05-27] MEDS: GI COCKTAIL 50ML BTL(HYOSCYAMINE/MAALOX/LIDOCAINE VISCOUS)(1:3:1) PO (22:58)
[2018-05-28] MEDS ORDERED: PRAZOSIN 1 MG CAP PO (01:15)
[2018-05-28] MEDS ORDERED: zolPIDEM TARTRATE 5 MG TAB PO (01:30)
[2018-05-28] MEDS: zolPIDEM TARTRATE 10MG TAB PO ×2 (01:38→21:00)
[2018-05-28] MEDS: clonazePAM 1 MG TAB PO ×4 (01:44→21:00)
[2018-05-28] MEDS: SERTRALINE 100 MG TAB PO (09:00)
[2018-05-28] MEDS ORDERED: ACETAMINOPHEN TAB 650MG DOSE (2X325MG) PO ×2 (10:00→10:15)
[2018-05-28] MEDS: EXCEDRIN MIGRAINE TABLET PO (10:14)
[2018-05-28] MEDS: buPROPion **XL** TABLET 150MG (WELLBUTRIN XL) PO (15:59)
[2018-05-28] MEDS: CALCIUM CARBONATE 500 MG CHEW U/D PO (15:59)
[2018-05-28] MEDS: PRAZOSIN 1 MG CAP PO (21:00)
[2018-05-29] MEDS: CALCIUM CARBONATE 500 MG CHEW U/D PO ×2 (03:13→08:56)
[2018-05-29] MEDS: PRAZOSIN 1 MG CAP PO ×2 (03:35→21:56)
[2018-05-29] MEDS: clonazePAM 1 MG TAB PO ×3 (08:56→21:55)
[2018-05-29] MEDS: buPROPion **XL** TABLET 150MG (WELLBUTRIN XL) PO (08:57)
[2018-05-29] MEDS: zolPIDEM TARTRATE 10MG TAB PO (21:55)
[2018-05-30] MEDS: EXCEDRIN MIGRAINE TABLET PO (04:53)
[2018-05-30] MEDS: buPROPion **XL** TABLET 150MG (WELLBUTRIN XL) PO (09:25)
[2018-05-30] MEDS: clonazePAM 1 MG TAB PO ×3 (09:25→23:38)
[2018-05-30] MEDS: zolPIDEM TARTRATE 10MG TAB PO (23:38)
[2018-05-30] MEDS: PRAZOSIN 1 MG CAP PO (23:39)
[2018-05-31] MEDS: HALOPERIDOL 5 MG TAB PO (00:08)
[2018-05-31] MEDS: buPROPion **XL** TABLET 150MG (WELLBUTRIN XL) PO (08:00)
[2018-05-31] MEDS: clonazePAM 1 MG TAB PO ×3 (08:00→20:04)
[2018-05-31] MEDS: zolPIDEM TARTRATE 10MG TAB PO (20:04)
[2018-05-31] MEDS: PRAZOSIN 1 MG CAP PO (20:04)
[2018-06-01] MEDS: clonazePAM 1 MG TAB PO ×3 (08:14→21:24)
[2018-06-01] MEDS: buPROPion **XL** TABLET 150MG (WELLBUTRIN XL) PO (08:14)
[2018-06-01] MEDS: PRAZOSIN 1 MG CAP PO (21:24)
[2018-06-01] MEDS: zolPIDEM TARTRATE 10MG TAB PO (21:25)
[2018-06-02] MEDS: clonazePAM 1 MG TAB PO (08:28)
[2018-06-02] MEDS: INFLUENZA QUADRIVALENT PF VACCINE 0.5ML SYRINGE (90686) IM (08:38)
[2018-06-02] MEDS: IBUPROFEN 400 MG TAB PO (09:46)
== END 2018-06-02 10:50 | disposition home or self-care (01) | DRG 755 ==
LOC: M ED 19:38 → M ED INP 22:42 → M PSY 23:50
DX: F43.10 Post-traumatic stress disorder, unspecified (principal); R45.851 Suicidal ideations; G80.9 Cerebral palsy, unspecified; F32.9 Major depressive disorder, single episode, unspecified; Z88.5 Allergy status to narcotic agent; Z88.1 Allergy status to other antibiotic agents; Z88.8 Allergy status to other drugs, medicaments and biological substances; Z79.899 Other long term (current) drug therapy; B18.2 Chronic viral hepatitis C

== ENCOUNTER 2018-07-06 19:20 | Inpatient (IN) | payer OTHER, MEDICAID ==
[~2018-07-06] VITALS: Ht 160 cm; Wt 62.7 kg
[~2018-07-06 19:20] MED LIST changes: +BUPR100T3 PO; +SERT-138 PO
[2018-07-06] MEDS ORDERED: BUPR100T3 (19:38)
[2018-07-06 20:06] LABS: HEMATOCRIT 36.6 % (36.0-47.0); HEMOGLOBIN 11.6 g/dl (12.0-15.5); MEAN CORPUSCULAR HEMOGLOBIN 27.1 pg (27.0-33.0); MEAN CORPUSCULAR HGB CONC 31.7 g/dl (32.0-36.5); MEAN CORPUSCULAR VOLUME 85.5 fl (80.0-96.0); PLATELET COUNT, AUTOMATED 229 10^3/uL (150-450); RED BLOOD COUNT 4.28 10^6/uL (4.00-5.40); WHITE BLOOD COUNT 6.8 10^3/uL (4.0-10.0)
[2018-07-06 20:42] LABS: ACETAMINOPHEN LEVEL < 2.0 UG/ML (10.0-30.0); ALBUMIN 3.9 GM/DL (3.2-5.2); ALT/SGPT 11 U/L (12-78); BILIRUBIN,DIRECT 0.2 MG/DL (0.0-0.2); BILIRUBIN,TOTAL 0.6 MG/DL (0.2-1.0); BLOOD UREA NITROGEN 24 MG/DL (7-18); CALCIUM LEVEL 8.5 MG/DL (8.5-10.1); CARBON DIOXIDE LEVEL 29 MEQ/L (21-32); CHLORIDE LEVEL 106 MEQ/L (98-107); CREATININE FOR GFR 0.79 MG/DL (0.55-1.30); ETHYL ALCOHOL (ETHANOL) < 0.003 % (0.000-0.010); GLOMERULAR FILTRATION RATE > 60.0 (>51); GLUCOSE, FASTING 79 MG/DL (70-100); SALICYLATE LEVEL 2.6 MG/DL (5.0-30.0); SODIUM LEVEL 141 MEQ/L (136-145); TOTAL PROTEIN 6.8 GM/DL (6.4-8.2)
[2018-07-06 21:58] LABS: AMPHETAMINES LEVEL URINE NEGATIVE (NEGATIVE); BARBITURATES URINE NEGATIVE (NEGATIVE); BENZODIAZEPINES URINE NEGATIVE (NEGATIVE); CANNABINOIDS URINE NEGATIVE (NEGATIVE); COCAINE METABOLITE URINE NEGATIVE (NEGATIVE); METHADONE URINE NEGATIVE (NEGATIVE); OPIATES URINE NEGATIVE (NEGATIVE); PHENCYCLIDINE URINE NEGATIVE (NEGATIVE)
[2018-07-06] MEDS ORDERED: LORazepam 2 MG TAB PO STA (23:08)
[2018-07-06] MEDS ORDERED: GI COCKTAIL 50ML BTL(HYOSCYAMINE/MAALOX/LIDOCAINE VISCOUS)(1:3:1) PO ONE (23:45)
[2018-07-07] MEDS ORDERED: clonazePAM 1 MG TAB PO ONE (07:30)
[2018-07-07] MEDS: NICOTINE 21MG/24HR 1 EA TRANSDERMAL TD SCH (09:00)
[2018-07-07] MEDS ORDERED: MAALOX 30 ML SUSP *UDC PO PRN (12:30)
[2018-07-07] MEDS ORDERED: ACETAMINOPHEN TAB 650MG DOSE (2X325MG) PO PRN (12:30)
[2018-07-07] MEDS ORDERED: MOM 30ML SUSPENSION UDC PO PRN (12:30)
[2018-07-07] MEDS ORDERED: OLANZapine 5 MG TAB PO PRN (12:30)
[2018-07-07 13:48] VITALS: BP 137/86
[2018-07-07] MEDS ORDERED: LORazepam 2 MG TAB PO PRN (14:30)
[2018-07-07] MEDS ORDERED: PRAZOSIN 1 MG CAP PO PRN (14:30)
[2018-07-07] MEDS: buPROPion (WELLBUTRIN SR) 100 MG SR TAB PO SCH (21:00)
[2018-07-08 07:47] VITALS: BP 115/55
--- NOTE | 2018-07-08 08:50 | HPEPDOC ---
[facility] Medical History & Physical History and Physical PCP: None ATTENDING: Dr. Jenaro Owens HPI: 53yoF admitted to [facility] for unspecifie mood disorder being medically examined today. The pt provided limited history, she is agitated throughout exam. Denies any fevers, chills, weakness, fatigue, ROGERS, CP, SOB, cough, palpitations, abdominal pain, N/V/D or changes in bowel or bladder habits. PMHx: Cervical cancer/history of LEEP procedure Cerebral palsy Endometriosis History of IBS with constipation History of chronic hepatitis C-as per records, she had started treatment and had not yet finished when she left [facility], had f/u scheduled with ID, Dr Orlando. History of substance use Tobacco use Anxiety depression History of SI/HI Night terrors PTSD Insomnia PSHX: Surgery 2007 lower extremities for cerebral palsy History of exploratory laparoscopies/Lysis of adhesions Tonsillectomy LEEP procedure SOCHX: Resides in: [facility]. Marital Status: Employment: Unemployed Tobacco use: One pack per day ETOH: Denies Illicit Drugs: Denies IV Drug Use: Denies FAMHX: Mother: Pt states "I don't know" Father: Pt states "I don't know" Siblings: 1 brother recently unknown cause per pt. Children: 4 Alive ROS: As noted in HPI, otherwise 11pt ROS of systems reviewed and remarkable only for postmenopausal per pt. PE: GEN: 53yoF, appears stated age. Well-nourished, well developed. No acute distress. Alert and oriented x 3. Agitated. HEENT: Normocephalic, atraumatic. Pupils are equal, round, and reactive to light. Extraocular movements are intact. No nystagmus appreciated. Sclera are nonicteric. Conjunctiva without injection. Nose midline. Nasal turbinates without bogginess. EACs both patent BL. TMs both visualized and chery with good cone of light, no bulging or erythema. No facial asymmetry. Moist mucous membranes. Dentition fair. Pharynx pink and moist, no cobblestoning. Neck supple, trachea midline. No lymphadenopathy or thyromegaly appreciated. CHEST: Regular rate and rhythm, +S1, +S2 LUNGS: Clear to auscultation bilaterally. No wheezes, rales, or rhonchi. Zulema thing appears symmetric and easy. Patient is speaking in full sentences. No accessory muscle use. ABD: Round, soft, non-tender, non-distended. +Bowel sounds throughout. No rebound or guarding. No costovertebral angle tenderness. EXT: Pulses 2+ bilaterally dorsalis pedis and radial. No lower extremity edema appreciated. SKIN: Porum, dry, warm. Capillary refill <2sec. No rashes. NEURO: Alert and oriented x 3. Cranial nerves III-XII are intact. Pt with h/o CP, no assitive devices for ambulation. EKG: SINUS RHYTHM COMPARED TO THE LAST 2 TRACINGS IN THE SYSTEM, ST-T ABNORMALITY IS NO LONGER PRESENT Electronically Signed On 05-21-2018 0:21:46 EST by Vinicio Bear A&P: 53yoF admitted to [facility] for unspecifie mood disorder 1. Psych. Plan per Psychiatry. EKG on file. 2. Nicotine dependence. Patch available. 3. History of chronic hepatitis C. The patient had apparently started treatment for hepatitis C. The patient was to follow-up with infectious disease but states she has not yet had appt. Arrange ID follow-up at discharge. LFTs are noted within normal limits. 4. History of cerebral palsy 5. History of IBS with constipation. Bowel care as needed. 6. Follow up. No Primary Care Provider. Will attempt to establish PCP on discharge. 7. Staff member Sharita Multani RN present throughout exam. Vital Signs Vital Signs Date Time Temp Pulse Resp B/P (MAP) Pulse Ox O2 Delivery O2 Flow Rate FiO2 07/08/18 07:47 97.3 66 16 115/55 (75) 07/07/18 13:48 97 07/07/18 12:54 Room Air Laboratory Data Labs 24H Item Value Date Time White Blood Count 6.8 10^3/uL 07/06/181957 Red Blood Count 4.28 10^6/uL 07/06/181957 Hemoglobin 11.6 g/dl L 07/06/181957 Hematocrit 36.6 % 07/06/181957 Mean Corpuscular Volume 85.5 fl 07/06/181957 Mean Corpuscular Hemoglobin 27.1 pg 07/06/181957 Mean Corpuscular Hemoglobin Concent 31.7 g/dl L 07/06/181957 Red Cell Distribution Width 14.7 % H 07/06/181957 Platelet Count 229 10^3/uL 07/06/181957 Sodium Level 141 MEQ/L 07/06/181957 Potassium Level 4.0 MEQ/L 07/06/181957 Chloride Level 106 MEQ/L 07/06/181957 Carbon Dioxide Level 29 MEQ/L 07/06/181957 Anion Gap 6 MEQ/L L 07/06/181957 Blood Urea Nitrogen 24 MG/DL H 07/06/181957 Creatinine 0.79 MG/DL 07/06/181957 Glomerular Filtration Rate > 60.0 07/06/181957 Fasting Glucose 79 MG/DL 07/06/181957 Calcium Level 8.5 MG/DL 07/06/181957 Total Bilirubin 0.6 MG/DL 07/06/181957 Direct Bilirubin 0.2 MG/DL 07/06/181957 Aspartate Amino Transf (AST/SGOT) 14 U/L 07/06/181957 Alanine Aminotransferase (ALT/SGPT) 11 U/L L 07/06/181957 Alkaline Phosphatase 74 U/L 07/06/181957 Total Protein 6.8 GM/DL 07/06/181957 Albumin 3.9 GM/DL 07/06/181957 Albumin/Globulin Ratio 1.34 07/06/181957 Thyroid Stimulating Hormone (TSH) 1.180 uIU/ML 07/06/181957 Salicylates Level 2.6 MG/DL L 07/06/181957 Urine Opiates Screen NEGATIVE 07/06/182112 Urine Methadone Screen NEGATIVE 07/06/182112 Acetaminophen Level < 2.0 UG/ML L 07/06/181957 Urine Barbiturates Screen NEGATIVE 07/06/182112 Urine Phencyclidine Screen NEGATIVE 07/06/182112 Urine Amphetamines Screen NEGATIVE 07/06/182112 Urine Benzodiazepines Screen NEGATIVE 07/06/182112 Urine Cocaine Metabolite Screen NEGATIVE 07/06/182112 Urine Cannabinoids Screen NEGATIVE 07/06/182112 Ethyl Alcohol Level < 0.003 % 07/06/181957 Home Medications Scheduled Clonazepam (Clonazepam) 2 Mg Tab, 2 MG PO TID Sertraline HCl (Sertraline HCl) 100 Mg Tab, 100 MG PO DAILY Zolpidem Tartrate (Ambien) 10 Mg Tab, 10 MG PO QHS Scheduled PRN Prazosin Hcl (Prazosin HCl) 1 Mg Cap, 1 MG PO QHS PRN for NIGHTMARES Miscellaneous Medications (Bupropion HCl Sr) 100 Mg Tab Allergies Coded Allergies: Codeine (Verified Allergy, Severe, CAN TAKE PERCOCET, 05/14/18) throat swelling Erythromycin (Verified Allergy, Severe, throat closing, 05/14/18) Morphine (Verified Allergy, Severe, throat closing, 05/14/18) Tramadol (Verified Allergy, Severe, throat closing, 05/14/18) Trazodone (Verified Allergy, Severe, Anaphylactic reaction, 05/14/18) Anaphylactic reaction Quetiapine (Verified Adverse Reaction, Intermediate, Cardiac issues, 05/14/18) Gissel Rajan Jul 08, 2018 08:50
[2018-07-08] MEDS: buPROPion (WELLBUTRIN SR) 100 MG SR TAB PO SCH (08:55)
[2018-07-08] MEDS: NICOTINE 21MG/24HR 1 EA TRANSDERMAL TD SCH (09:00)
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
== END 2018-07-08 13:15 | disposition home or self-care (01) | DRG 882 ==
LOC: M ED 19:20 → M ED INP 07-07 12:27 → M PSY 07-07 13:00
PROVIDERS: ADMIT Psychiatry & Neurology Psychiatry; ATTEND Psychiatry & Neurology Psychiatry
DX: F43.10 Post-traumatic stress disorder, unspecified (principal); G80.9 Cerebral palsy, unspecified; F60.3 Borderline personality disorder; Z63.4 Disappearance and death of family member; F13.90 Sedative, hypnotic, or anxiolytic use, unspecified, uncomplicated; Z79.899 Other long term (current) drug therapy; Z88.5 Allergy status to narcotic agent; Z88.1 Allergy status to other antibiotic agents; Z88.8 Allergy status to other drugs, medicaments and biological substances; Z85.41 Personal history of malignant neoplasm of cervix uteri; B18.2 Chronic viral hepatitis C; F17.200 Nicotine dependence, unspecified, uncomplicated; F41.9 Anxiety disorder, unspecified; K59.00 Constipation, unspecified; G47.00 Insomnia, unspecified

== ENCOUNTER 2018-11-16 11:38 | Emergency (ER) | payer OTHER, MEDICAID ==
[~2018-11-16] VITALS: Ht 160 cm; Wt 62.7 kg
[~2018-11-16 11:38] MED LIST changes: -SERT25TA PO; +SERT25TA85 PO; +TRAZ1TAB6 PO; -TRAZO50TA PO
--- NOTE | 2018-11-16 12:24 | REP ---
Chest one-view HISTORY: Chest pain Comparison: 05/22/2018 The lungs are clear. The heart is normal in size. The pulmonary vasculature is normal in appearance. Impression: No acute disease. Electronically Signed by Tom Ayala MD 11/16/2018 12:16 P
[2018-11-16] MEDS ORDERED: NS 1,000 ML IV ONE (12:45)
[2018-11-16 12:59] LABS: BASO % 0.3 % (0.0-1.0); EOS # 0.1 10^3/uL (0.0-0.50); EOS % 0.6 % (0.0-3.0); HEMATOCRIT 38.1 % (36.0-47.0); HEMOGLOBIN 12.2 g/dl (12.0-15.5); LYMPH # 1.5 10^3/uL (1.5-4.5); LYMPH % 16.6 % (24.0-44.0); MEAN CORPUSCULAR HEMOGLOBIN 27.2 pg (27.0-33.0); MEAN CORPUSCULAR VOLUME 84.9 fl (80.0-96.0); MONO # 0.5 10^3/uL (0.0-0.8); MONO % 5.4 % (0.0-5.0); NEUTROPHILS % 76.9 % (36.0-66.0); PLATELET COUNT, AUTOMATED 226 10^3/uL (150-450); RED BLOOD COUNT 4.49 10^6/uL (4.00-5.40)
[2018-11-16 13:06] LABS: BLOOD UREA NITROGEN 29 MG/DL (7-18); CARBON DIOXIDE LEVEL 27 MEQ/L (21-32); CHLORIDE LEVEL 108 MEQ/L (98-107); CK-MB VALUE MASS < 1.0 NG/ML (<3.6); CPK CREATINE PHOSPHOKINASE 78 U/L (26-192); CREATININE FOR GFR 0.75 MG/DL (0.55-1.30); ETHYL ALCOHOL (ETHANOL) < 0.003 % (0.000-0.010); FREE THYROXINE INDEX 3.4 % (1.3-4.8); GLOMERULAR FILTRATION RATE > 60.0 (>51); GLUCOSE, FASTING 95 MG/DL (70-100); MAGNESIUM LEVEL 2.2 MG/DL (1.8-2.4); MB/CK RELATIVE INDEX 1.28 (< OR =4); POTASSIUM SERUM 4.4 MEQ/L (3.5-5.1); SODIUM LEVEL 142 MEQ/L (136-145); T UPTAKE 28 % (30-39); TROPONIN I < 0.02 NG/ML (< 0.10)
[2018-11-16 13:15] LABS: INR 0.91; PROTHROMBIN TIME 12.3 SECONDS (12.1-14.4)
[2018-11-16 14:14] LABS: AMPHETAMINES LEVEL URINE NEGATIVE (NEGATIVE); BARBITURATES URINE NEGATIVE (NEGATIVE); BENZODIAZEPINES URINE NEGATIVE (NEGATIVE); CANNABINOIDS URINE NEGATIVE (NEGATIVE); COCAINE METABOLITE URINE NEGATIVE (NEGATIVE); METHADONE URINE NEGATIVE (NEGATIVE); OPIATES URINE NEGATIVE (NEGATIVE); PHENCYCLIDINE URINE NEGATIVE (NEGATIVE)
[2018-11-16] MEDS ORDERED: ACETAMINOPHEN 325 MG TAB PO ONE (14:30)
[2018-11-16 15:00] VITALS: BP 128/66
--- NOTE | 2018-11-16 16:22 | ECGEPIP ---
[facility] - ED Test Date: 2018-11-16 Pat Name: STACIE VACA Department: Room: - Gender: Female Head Of [employer]: TC : 1965 Requested By: Rosa Marx Order Number: [id number] Reading MD: Rosa Marx Measurements Intervals [place] Rate: 73 P: 59 MN: 150 QRS: 47 QRSD: 82 T: 19 QT: 393 QTc: 433 Interpretive Statements SINUS RHYTHM NSTTW abnormalities DECREASED RATE 09/22/18 Electronically Signed on 11-16-2018 16:22:29 EDT by Rosa Marx
== END 2018-11-16 15:18 | disposition home or self-care (01) ==
LOC: EDBD 11:38 → M ED 11:38
DX: I49.9 Cardiac arrhythmia, unspecified (principal); R00.2 Palpitations; R06.02 Shortness of breath; Z72.0 Tobacco use; Z79.899 Other long term (current) drug therapy; Z88.5 Allergy status to narcotic agent; Z88.1 Allergy status to other antibiotic agents
CPT/HCPCS: 71045; 80048; 80307; 82550; 82553; 83735; 84436; 84443; 84479; 84484; 85025; 85610; 93005; 93041; 94760; 99285; G0480

== ENCOUNTER 2019-03-25 01:32 | Emergency (ER) | payer MEDICAID, OTHER ==
[~2019-03-25] VITALS: Ht 160 cm; Wt 62.7 kg
[~2019-03-25 01:32] MED LIST changes: -SERT-155 PO; +SERT50TA29 PO
[2019-03-25 02:30] LABS: HEMATOCRIT 39.6 % (36.0-47.0); MEAN CORPUSCULAR HEMOGLOBIN 27.8 pg (27.0-33.0); MEAN CORPUSCULAR HGB CONC 32.8 g/dl (32.0-36.5); MEAN CORPUSCULAR VOLUME 84.8 fl (80.0-96.0); PLATELET COUNT, AUTOMATED 250 10^3/uL (150-450); RED BLOOD COUNT 4.67 10^6/uL (4.00-5.40); WHITE BLOOD COUNT 7.5 10^3/uL (4.0-10.0)
[2019-03-25 03:03] LABS: ACETAMINOPHEN LEVEL < 2.0 UG/ML (10.0-30.0); ALBUMIN 3.7 GM/DL (3.2-5.2); ALT/SGPT 17 U/L (12-78); BILIRUBIN,DIRECT 0.1 MG/DL (0.0-0.2); BILIRUBIN,TOTAL 0.4 MG/DL (0.2-1.0); BLOOD UREA NITROGEN 28 MG/DL (7-18); CALCIUM LEVEL 8.5 MG/DL (8.5-10.1); CARBON DIOXIDE LEVEL 29 MEQ/L (21-32); CHLORIDE LEVEL 108 MEQ/L (98-107); ETHYL ALCOHOL (ETHANOL) < 0.003 % (0.000-0.010); GLOMERULAR FILTRATION RATE > 60.0 (>51); GLUCOSE, FASTING 104 MG/DL (70-100); POTASSIUM SERUM 4.3 MEQ/L (3.5-5.1); SALICYLATE LEVEL 2.3 MG/DL (5.0-30.0); SODIUM LEVEL 141 MEQ/L (136-145); TOTAL PROTEIN 6.7 GM/DL (6.4-8.2)
[2019-03-25 03:45] VITALS: BP 142/85
== END 2019-03-25 04:02 | disposition home or self-care (01) ==
LOC: M ED 01:32
DX: F43.0 Acute stress reaction (principal); F43.10 Post-traumatic stress disorder, unspecified; F32.9 Major depressive disorder, single episode, unspecified; Z88.1 Allergy status to other antibiotic agents; Z88.5 Allergy status to narcotic agent; Z88.8 Allergy status to other drugs, medicaments and biological substances
CPT/HCPCS: 80048; 80076; 84443; 85027; 99284; G0480

== ENCOUNTER 2019-04-03 15:13 | Emergency (ER) | payer MEDICAID ==
[2019-04-03] MEDS ORDERED: LIDOCAINE 2% W/EPIN INJ 20ML **PRES FREE INJ ONE (17:00)
[2019-04-03] MEDS ORDERED: LIDOCAINE 2% W/EPIN INJ 20ML **PRES FREE As Ordered ONE (17:02)
[2019-04-03 17:11] LABS: HEMATOCRIT 38.4 % (36.0-47.0); HEMOGLOBIN 12.2 g/dl (12.0-15.5); MEAN CORPUSCULAR HEMOGLOBIN 27.2 pg (27.0-33.0); MEAN CORPUSCULAR HGB CONC 31.8 g/dl (32.0-36.5); MEAN CORPUSCULAR VOLUME 85.5 fl (80.0-96.0); PLATELET COUNT, AUTOMATED 219 10^3/uL (150-450); RED BLOOD COUNT 4.49 10^6/uL (4.00-5.40); WHITE BLOOD COUNT 6.8 10^3/uL (4.0-10.0)
[2019-04-03 17:30] LABS: AMPHETAMINES LEVEL URINE NEGATIVE (NEGATIVE); BARBITURATES URINE NEGATIVE (NEGATIVE); BENZODIAZEPINES URINE NEGATIVE (NEGATIVE); CANNABINOIDS URINE NEGATIVE (NEGATIVE); COCAINE METABOLITE URINE NEGATIVE (NEGATIVE); METHADONE URINE NEGATIVE (NEGATIVE); OPIATES URINE NEGATIVE (NEGATIVE); PHENCYCLIDINE URINE NEGATIVE (NEGATIVE)
[2019-04-03 17:46] LABS: HCG, SERUM QUALITATIVE NEGATIVE (NEGATIVE)
[2019-04-03 17:48] LABS: ACETAMINOPHEN LEVEL < 2.0 UG/ML (10.0-30.0); ALBUMIN 3.9 GM/DL (3.2-5.2); ALT/SGPT 18 U/L (12-78); BILIRUBIN,DIRECT 0.1 MG/DL (0.0-0.2); BILIRUBIN,TOTAL 0.5 MG/DL (0.2-1.0); BLOOD UREA NITROGEN 28 MG/DL (7-18); CALCIUM LEVEL 8.7 MG/DL (8.5-10.1); CARBON DIOXIDE LEVEL 30 MEQ/L (21-32); CHLORIDE LEVEL 109 MEQ/L (98-107); CREATININE FOR GFR 0.72 MG/DL (0.55-1.30); ETHYL ALCOHOL (ETHANOL) < 0.003 % (0.000-0.010); GLOMERULAR FILTRATION RATE > 60.0 (>51); GLUCOSE, FASTING 88 MG/DL (70-100); POTASSIUM SERUM 4.3 MEQ/L (3.5-5.1); SALICYLATE LEVEL 2.6 MG/DL (5.0-30.0); SODIUM LEVEL 142 MEQ/L (136-145)
[2019-04-03] MEDS ORDERED: ADACEL/BOOSTRIX VACCINE (DIPHTH/PERTUSS/ACELL/TETANUS)0.5ML SYR (90715) IM ONE (19:45)
[2019-04-03 20:00] VITALS: BP 160/78
== END 2019-04-03 19:57 | disposition home or self-care (01) ==
LOC: M ED 15:13 → EDBD 15:13 → M ED 19:57
DX: F43.10 Post-traumatic stress disorder, unspecified (principal); S61.512A Laceration without foreign body of left wrist, initial encounter; X58.XXXA Exposure to other specified factors, initial encounter; Y92.89 Other specified places as the place of occurrence of the external cause; Z88.6 Allergy status to analgesic agent; Z88.8 Allergy status to other drugs, medicaments and biological substances; Z79.899 Other long term (current) drug therapy; K21.9 Gastro-esophageal reflux disease without esophagitis; F51.4 Sleep terrors [night terrors]; F17.210 Nicotine dependence, cigarettes, uncomplicated
CPT/HCPCS: 36415; 80048; 80076; 80307; 84443; 84703; 85027; 96372; 99284; G0480

== ENCOUNTER 2019-04-21 10:48 | Emergency (ER) | payer MEDICAID ==
[~2019-04-21] VITALS: Ht 160 cm; Wt 65.9 kg
[2019-04-21 10:48] VITALS: BP 121/67
[2019-04-21] MEDS ORDERED: NAPR220C14 PO (11:29)
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
[2019-04-21] MEDS ORDERED: KETOROLAC 60 MG/2 ML VIAL (J1885) IM ONE (13:00)
[2019-04-21] MEDS ORDERED: ACETAMINOPHEN 325 MG TAB PO ONE (13:00)
== END 2019-04-21 13:11 | disposition home or self-care (01) ==
LOC: M ED 10:48
DX: S46.811A Strain of other muscles, fascia and tendons at shoulder and upper arm level, right arm, initial encounter (principal); W01.0XXA Fall on same level from slipping, tripping and stumbling without subsequent striking against object, initial encounter; Y92.019 Unspecified place in single-family (private) house as the place of occurrence of the external cause; M19.011 Primary osteoarthritis, right shoulder; K21.9 Gastro-esophageal reflux disease without esophagitis; F17.210 Nicotine dependence, cigarettes, uncomplicated; Z88.1 Allergy status to other antibiotic agents; Z88.2 Allergy status to sulfonamides; Z88.6 Allergy status to analgesic agent; Z79.83 Long term (current) use of bisphosphonates; Z79.899 Other long term (current) drug therapy

== ENCOUNTER → 2021-11-06 | Outpatient (CLI) | payer OTHER ==
[~2021-11-06] MED LIST changes: +BUPR-70; +BUPR-70 PO; -BUPR100T3; -BUPR100T3 PO; +CLON0.5T2 PO; -CLON0.5T8 PO; +NAPR220C14 PO
[2021-11-06 15:20] LABS: HEMATOCRIT 43.4 % (36.0-47.0); HEMOGLOBIN 13.6 g/dl (12.0-15.5); MEAN CORPUSCULAR HEMOGLOBIN 26.6 pg (27.0-33.0); MEAN CORPUSCULAR HGB CONC 31.3 g/dl (32.0-36.5); MEAN CORPUSCULAR VOLUME 84.8 fl (80.0-96.0); PLATELET COUNT, AUTOMATED 242 10^3/uL (150-450); RED BLOOD COUNT 5.12 10^6/uL (4.00-5.40); WHITE BLOOD COUNT 7.5 10^3/uL (4.0-10.0)
[2021-11-06 15:58] LABS: ALBUMIN 4.2 GM/DL (3.2-5.2); ALT/SGPT 379 U/L (12-78); BILIRUBIN,TOTAL 0.8 MG/DL (0.2-1.0); BLOOD UREA NITROGEN 26 MG/DL (7-18); CALCIUM LEVEL 9.1 MG/DL (8.5-10.1); CARBON DIOXIDE LEVEL 28 MEQ/L (21-32); CHLORIDE LEVEL 108 MEQ/L (98-107); CHOLESTEROL LEVEL 190 MG/DL (<200); CHOLESTEROL RISK RATIO 2.923 (<5); CREATININE FOR GFR 0.92 MG/DL (0.55-1.30); FREE T4 1.28 NG/DL (0.76-1.46); GLOMERULAR FILTRATION RATE > 60.0 (>51); GLUCOSE, FASTING 86 MG/DL (70-100); HDL CHOLESTEROL 65 MG/DL (>40); HEPATITIS B SURFACE ANTIBODY NEGATIVE (POSITIVE); LDL CHOLESTEROL 112 MG/DL (<100); NON-HDL-C 125 MG/DL; POTASSIUM SERUM 4.5 MEQ/L (3.5-5.1); SODIUM LEVEL 140 MEQ/L (136-145); TOTAL PROTEIN 7.5 GM/DL (6.4-8.2); TRIGLYCERIDES LEVEL 66 MG/DL (<150)
[2021-11-06 16:07] LABS: HEPATITIS B SURFACE ANTIGEN NEGATIVE (NEGATIVE)
[2021-11-06 16:35] LABS: HIV 1&2 SCREEN CENTAUR NEGATIVE (NEGATIVE)
[2021-11-06 16:53] LABS: GC DNA AMPLIFICATION NEGATIVE (NEGATIVE)
[2021-11-06 17:48] LABS: HEMOGLOBIN A1c 5.3 %
== END ==
LOC: M PLALAB 10:21
PROVIDERS: ATTEND Internal Medicine Infectious Disease
DX: B18.2 Chronic viral hepatitis C (principal); G62.9 Polyneuropathy, unspecified; R10.30 Lower abdominal pain, unspecified; Z13.220 Encounter for screening for lipoid disorders

== ENCOUNTER → 2022-06-16 | Outpatient (CLI) | payer OTHER ==
[2022-06-16 15:10] LABS: BILIRUBIN,DIRECT 0.2 MG/DL (<0.4)
[2022-06-16 15:13] LABS: ALBUMIN 4.2 G/DL (3.2-5.2); BILIRUBIN,TOTAL 0.7 MG/DL (0.3-1.2)
[2022-06-18 19:10] LABS: HEPATITIS C QUANTITATION HCV Not Detected IU/mL (.)
== END ==
LOC: M PLALAB 11:28
PROVIDERS: ATTEND Internal Medicine Infectious Disease
DX: B18.2 Chronic viral hepatitis C (principal)

== ENCOUNTER → 2022-06-18 | Outpatient (CLI) | payer OTHER ==
[2022-06-18 13:48] LABS: HEMATOCRIT 42.3 % (36.0-47.0); HEMOGLOBIN 13.2 g/dl (12.0-15.5); MEAN CORPUSCULAR HEMOGLOBIN 26.9 pg (27.0-33.0); MEAN CORPUSCULAR HGB CONC 31.2 g/dl (32.0-36.5); MEAN CORPUSCULAR VOLUME 86.3 fl (80.0-96.0); PLATELET COUNT, AUTOMATED 259 10^3/uL (150-450); WHITE BLOOD COUNT 7.5 10^3/uL (4.0-10.0)
[2022-06-18 14:13] LABS: BLOOD UREA NITROGEN 18 MG/DL (9-23); CALCIUM LEVEL 9.3 MG/DL (8.5-10.1); CARBON DIOXIDE LEVEL 29 MMOL/L (20-31); CHLORIDE LEVEL 105 MMOL/L (98-107); CREATININE FOR GFR 0.83 MG/DL (0.55-1.30); GLOMERULAR FILTRATION RATE > 60.0 (>51); GLUCOSE, FASTING 95 MG/DL (60-100); POTASSIUM SERUM 4.3 MMOL/L (3.5-5.1); SODIUM LEVEL 141 MMOL/L (136-145)
[2022-06-18 16:08] LABS: GC DNA AMPLIFICATION NEGATIVE (NEGATIVE)
[2022-06-19 07:08] LABS: HSV TYPE II IgG SPECIFIC <0.91 index (0.00-0.90)
== END ==
LOC: M PLALAB 10:37
PROVIDERS: ATTEND Internal Medicine Infectious Disease
DX: R10.30 Lower abdominal pain, unspecified (principal); T74.21XA Adult sexual abuse, confirmed, initial encounter

== ENCOUNTER → 2022-07-06 | Outpatient (CLI) | payer OTHER | LOC: M PLAIMG 12:44 | PROVIDERS: ATTEND Internal Medicine Infectious Disease | DX: R10.30 Lower abdominal pain, unspecified (principal); K44.9 Diaphragmatic hernia without obstruction or gangrene ==

== ENCOUNTER 2022-08-05 16:43 | Emergency (ER) | payer OTHER ==
[~2022-08-05] VITALS: Ht 160 cm; Wt 77.3 kg
[2022-08-05] MEDS ORDERED: NS 1,000 ML IV ONE (17:45)
[2022-08-05] MEDS ORDERED: ONDANSETRON 4MG 2ML VIAL IV ONE (17:45)
[2022-08-05] MEDS ORDERED: KETOROLAC 30 MG/ML 1ML VIAL IV ONE (17:45)
[2022-08-05 18:23] LABS: BASO % 0.4 % (0.0-1.0); EOS # 0.1 10^3/uL (0.0-0.5); EOS % 1.1 % (0.0-3.0); HEMATOCRIT 41.2 % (36.0-47.0); HEMOGLOBIN 12.8 g/dl (12.0-15.5); LYMPH % 23.4 % (24.0-44.0); MEAN CORPUSCULAR HEMOGLOBIN 26.7 pg (27.0-33.0); MEAN CORPUSCULAR HGB CONC 31.1 g/dl (32.0-36.5); MEAN CORPUSCULAR VOLUME 85.8 fl (80.0-96.0); MONO # 0.5 10^3/uL (0.0-0.8); MONO % 6.5 % (2.0-8.0); NEUTROPHILS # 5.7 10^3/uL (1.5-8.5); NEUTROPHILS % 68.4 % (36.0-66.0); PLATELET COUNT, AUTOMATED 282 10^3/uL (150-450); WHITE BLOOD COUNT 8.3 10^3/uL (4.0-10.0)
[2022-08-05] MEDS ORDERED: ISOVUE-370 76% 100ML VIAL As Ordered ONE (18:49)
[2022-08-05 19:00] LABS: ALBUMIN 3.7 G/DL (3.2-5.2); BILIRUBIN,DIRECT 0.2 MG/DL (<0.4); BILIRUBIN,TOTAL 0.6 MG/DL (0.3-1.2); TOTAL PROTEIN 6.6 G/DL (5.7-8.2)
[2022-08-05] MEDS ORDERED: GI COCKTAIL 50ML BTL(HYOSCYAMINE/MAALOX/LIDOCAINE VISCOUS)(1:3:1) PO ONE (20:25)
[2022-08-05] MEDS ORDERED: CARA1TAB6 PO (20:52)
[2022-08-05] MEDS ORDERED: MIRA3350 PO (20:52)
[2022-08-05] MEDS ORDERED: PROT1TAB2 PO (20:52)
[2022-08-05] MEDS ORDERED: DULC5TAB PO (20:52)
[2022-08-05 21:21] VITALS: BP 159/80
== END 2022-08-05 21:24 | disposition home or self-care (01) ==
LOC: EDBD 16:43 → M ED 16:43
DX: N83.202 Unspecified ovarian cyst, left side (principal); K44.9 Diaphragmatic hernia without obstruction or gangrene; K31.A0 Gastric intestinal metaplasia, unspecified; K59.00 Constipation, unspecified; F43.10 Post-traumatic stress disorder, unspecified; F17.200 Nicotine dependence, unspecified, uncomplicated; G80.9 Cerebral palsy, unspecified; K21.9 Gastro-esophageal reflux disease without esophagitis; Z88.6 Allergy status to analgesic agent; Z88.1 Allergy status to other antibiotic agents; Z88.8 Allergy status to other drugs, medicaments and biological substances; Z79.899 Other long term (current) drug therapy
CPT/HCPCS: 74177; 80047; 80076; 83605; 83690; 85025; 96361; 96374; 99284; J1885; J2405

== ENCOUNTER → 2022-11-03 | Outpatient (REF) | payer OTHER ==
[~2022-11-03] MED LIST changes: +CARA1TAB6 PO; +DULC5TAB PO; +PROT1TAB2 PO
== END ==
LOC: M PLALAB 14:20
PROVIDERS: ATTEND Advanced Practice Midwife
DX: Z12.4 Encounter for screening for malignant neoplasm of cervix (principal)

== ENCOUNTER → 2022-11-03 | Outpatient (CLI) | payer OTHER | LOC: M WHC 13:25 | PROVIDERS: ATTEND Advanced Practice Midwife | DX: R92.2 Inconclusive mammogram (principal) ==

== ENCOUNTER → 2022-11-03 | Outpatient (CLI) | payer OTHER | LOC: M PLALAB 14:49 | PROVIDERS: ATTEND Advanced Practice Midwife | DX: Z01.419 Encounter for gynecological examination (general) (routine) without abnormal findings (principal) ==

== ENCOUNTER → 2022-11-19 | Outpatient (CLI) | payer OTHER | LOC: M WHC 10:57 | PROVIDERS: ATTEND Advanced Practice Midwife | DX: Z12.31 Encounter for screening mammogram for malignant neoplasm of breast (principal) ==

== ENCOUNTER 2023-01-14 00:29 | Inpatient (IN) | payer OTHER ==
[~2023-01-14] VITALS: Ht 170.2 cm; Wt 83.9 kg
[2023-01-14] VITALS (68 sets, daily range): BP systolic 73–157; BP diastolic 39–83; TEMP 96.2–97.6; O2SAT 91–100
[2023-01-14] MEDS ORDERED: NS 1,000 ML IV ONE ×3 (00:55→05:20)
[2023-01-14] MEDS ORDERED: PROPOFOL 1,000 MG/100 ML VIAL As Ordered ONE (01:16)
[2023-01-14 01:28] LABS: BASO % 0.3 % (0.0-1.0); EOS # 0.1 10^3/uL (0.0-0.5); EOS % 1.4 % (0.0-3.0); HEMATOCRIT 37.8 % (36.0-47.0); LYMPH # 2.2 10^3/uL (1.5-5.0); LYMPH % 30.9 % (24.0-44.0); MEAN CORPUSCULAR HEMOGLOBIN 26.9 pg (27.0-33.0); MEAN CORPUSCULAR HGB CONC 31.7 g/dl (32.0-36.5); MEAN CORPUSCULAR VOLUME 84.8 fl (80.0-96.0); MONO # 0.5 10^3/uL (0.0-0.8); MONO % 7.6 % (2.0-8.0); NEUTROPHILS # 4.3 10^3/uL (1.5-8.5); NEUTROPHILS % 59.5 % (36.0-66.0); PLATELET COUNT, AUTOMATED 249 10^3/uL (150-450); RED BLOOD COUNT 4.46 10^6/uL (4.00-5.40); WHITE BLOOD COUNT 7.2 10^3/uL (4.0-10.0)
[2023-01-14 01:36] LABS: ETHYL ALCOHOL (ETHANOL) 0.055 % (0.000-0.010)
[2023-01-14 01:37] LABS: ACETAMINOPHEN LEVEL < 2.0 UG/ML (10.0-20.0); CPK CREATINE PHOSPHOKINASE 60 U/L (34-145)
[2023-01-14 01:38] LABS: ALBUMIN 3.4 G/DL (3.2-5.2); ALKALINE PHOSPHATASE 83 U/L (46-116); ALT/SGPT < 9 U/L (7.0-40); AST/SGOT < 8 U/L (<34); BILIRUBIN,DIRECT 0.2 MG/DL (<0.4); BILIRUBIN,TOTAL 0.7 MG/DL (0.3-1.2); BLOOD UREA NITROGEN 28 MG/DL (9-23); CALCIUM LEVEL 8.6 MG/DL (8.5-10.1); CARBON DIOXIDE LEVEL 23 MMOL/L (20-31); CHLORIDE LEVEL 111 MMOL/L (98-107); CREATININE FOR GFR 0.84 MG/DL (0.55-1.30); GLOMERULAR FILTRATION RATE > 60.0 (>51); GLUCOSE, FASTING 89 MG/DL (60-100); POTASSIUM SERUM 3.4 MMOL/L (3.5-5.1); SALICYLATE LEVEL < 3.0 MG/DL (<30); SODIUM LEVEL 145 MMOL/L (136-145); TOTAL PROTEIN 6.2 G/DL (5.7-8.2)
[2023-01-14 01:40] LABS: THYROID STIMULATING HORMONE 1.552 uIU/ML (0.55-4.78)
[2023-01-14 01:50] LABS: RSV AMPLIFICATION NEGATIVE (NEGATIVE)
[2023-01-14] MEDS ORDERED: CHARCOAL ACTIVATED LIQUID 25GM/120ML BTL PO ONE (01:55)
[2023-01-14 02:01] LABS: ABG BASE EXCESS -4.7 (-2.0-2.0); ABG HCO3 20.6 MMOL/L (22.0-26.0); ABG PARTIAL PRESSURE O2 61.5 mmHg (75.0-100.0); ABG STANDARD HCO3 20.5 MMOL/L. (22.0-26.0); ABG TOTAL CO2 21.8 MMOL/L (22.0-29.0); ABG pH (ARTERIAL) 7.341 UNITS (7.350-7.450)
[2023-01-14 02:02] LABS: OSMOLALITY SERUM 314 MOSM/KG (275-295)
[2023-01-14] MEDS ORDERED: propofoL 1,000 MG in IV 1 EA IV SCH (03:35)
[2023-01-14] MEDS ORDERED: POTASSIUM CHLORIDE 10% LIQ 20MEQ/15ML UDC NG ONE (04:30)
[2023-01-14] MEDS: LR 1,000 ML IV SCH ×3 (05:06→17:25)
[2023-01-14] MEDS: PIPERACILLIN/TAZOBACTAM SOD 3.375 GM in D5W MINI-BAG PLUS 50 ML IV SCH ×4 (05:09→22:47)
[2023-01-14 05:13] LABS: ABG BASE EXCESS -4.8 (-2.0-2.0); ABG HCO3 19.8 MMOL/L (22.0-26.0); ABG O2 SATURATION 97.7 % (95.0-99.0); ABG PARTIAL PRESSURE CO2 34.9 mmHg (35.0-45.0); ABG PARTIAL PRESSURE O2 111.7 mmHg (75.0-100.0); ABG STANDARD HCO3 20.5 MMOL/L. (22.0-26.0); ABG TOTAL CO2 20.8 MMOL/L (22.0-29.0); ABG pH (ARTERIAL) 7.371 UNITS (7.350-7.450)
[2023-01-14] MEDS ORDERED: ZALE10CA PO (06:31)
[2023-01-14] MEDS ORDERED: BACL10TA2 PO (06:32)
[2023-01-14] MEDS: IPRATROPIUM 0.5MG/ALBUTEROL 2.5MG INH SOL UD 3ML (DUONEB) NEB SCH ×4 (08:02→19:23)
[2023-01-14 08:22] LABS: BLOOD UREA NITROGEN 20 MG/DL (9-23); CALCIUM LEVEL 7.9 MG/DL (8.5-10.1); CARBON DIOXIDE LEVEL 20 MMOL/L (20-31); CHLORIDE LEVEL 117 MMOL/L (98-107); CREATININE FOR GFR 0.65 MG/DL (0.55-1.30); GLOMERULAR FILTRATION RATE > 60.0 (>51); GLUCOSE, FASTING 105 MG/DL (60-100); POTASSIUM SERUM 4.1 MMOL/L (3.5-5.1); SODIUM LEVEL 148 MMOL/L (136-145)
[2023-01-14] MEDS: ENOXAPARIN 40MG/0.4ML SYRINGE (J1650 PER 10MG) SC SCH (08:29)
[2023-01-14] MEDS: PANTOPRAZOLE 40MG VIAL IV SCH (08:29)
[2023-01-14] MEDS: CHLORHEXIDINE GLUCONATE 0.12 % 15ML UDC (PERIDEX ORAL RINSE) MT SCH ×2 (08:29→20:15)
[2023-01-14] MEDS: MIDAZOLAM INJ 2MG/2ML VIAL IV PRN ×5 (10:01→22:47)
[2023-01-14 10:18] LABS: LITHIUM LEVEL < 0.10 MMOL/L (1.0-1.20)
[2023-01-14 11:07] LABS: ABG BASE EXCESS -6.1 (-2.0-2.0); ABG HCO3 20.2 MMOL/L (22.0-26.0); ABG O2 SATURATION 97.7 % (95.0-99.0); ABG PARTIAL PRESSURE CO2 42.7 mmHg (35.0-45.0); ABG PARTIAL PRESSURE O2 107.6 mmHg (75.0-100.0); ABG STANDARD HCO3 19.5 MMOL/L. (22.0-26.0); ABG TOTAL CO2 21.5 MMOL/L (22.0-29.0); ABG pH (ARTERIAL) 7.292 UNITS (7.350-7.450)
[2023-01-14] MEDS ORDERED: LR 1,000 ML IV ONE (11:30)
[2023-01-14] MEDS ORDERED: ROCURONIUM BROMIDE 50MG/5ML VIAL ONE (11:49)
[2023-01-14] MEDS ORDERED: MIDAZOLAM INJ 2MG/2ML VIAL IV STA ×2 (13:49→16:03)
[2023-01-14] MEDS ORDERED: fentaNYL 100 MCG/2 ML INJECTION IV ONE (16:10)
[2023-01-14] MEDS: dexmedeTOMidine 200 MCG in IV 1 EA IV SCH ×2 (16:15→22:50)
[2023-01-15] VITALS (60 sets, daily range): BP systolic 105–180; BP diastolic 55–110; TEMP 97.4–98.4; O2SAT 84–100
[2023-01-15] MEDS: LR 1,000 ML IV SCH ×3 (01:08→17:00)
[2023-01-15] MEDS: MIDAZOLAM INJ 2MG/2ML VIAL IV PRN ×3 (01:08→04:35)
[2023-01-15] MEDS: PIPERACILLIN/TAZOBACTAM SOD 3.375 GM in D5W MINI-BAG PLUS 50 ML IV SCH ×4 (04:18→22:58)
[2023-01-15 04:22] LABS: HEMATOCRIT 33.8 % (36.0-47.0); HEMOGLOBIN 10.7 g/dl (12.0-15.5); MEAN CORPUSCULAR HEMOGLOBIN 26.8 pg (27.0-33.0); MEAN CORPUSCULAR HGB CONC 31.7 g/dl (32.0-36.5); MEAN CORPUSCULAR VOLUME 84.7 fl (80.0-96.0); PLATELET COUNT, AUTOMATED 198 10^3/uL (150-450); RED BLOOD COUNT 3.99 10^6/uL (4.00-5.40); WHITE BLOOD COUNT 6.7 10^3/uL (4.0-10.0)
[2023-01-15 04:56] LABS: ALBUMIN 2.8 G/DL (3.2-5.2); ALKALINE PHOSPHATASE 78 U/L (46-116); ALT/SGPT < 9 U/L (7.0-40); AST/SGOT 11 U/L (<34); BILIRUBIN,TOTAL 1.2 MG/DL (0.3-1.2); BLOOD UREA NITROGEN 13 MG/DL (9-23); CALCIUM LEVEL 8.1 MG/DL (8.5-10.1); CARBON DIOXIDE LEVEL 23 MMOL/L (20-31); CHLORIDE LEVEL 117 MMOL/L (98-107); CREATININE FOR GFR 0.68 MG/DL (0.55-1.30); GLOMERULAR FILTRATION RATE > 60.0 (>51); GLUCOSE, FASTING 102 MG/DL (60-100); MAGNESIUM LEVEL 1.8 MG/DL (1.8-2.4); SODIUM LEVEL 148 MMOL/L (136-145); TOTAL PROTEIN 5.2 G/DL (5.7-8.2)
[2023-01-15 06:09] LABS: ABG BASE EXCESS 0.6 (-2.0-2.0); ABG HCO3 23.5 MMOL/L (22.0-26.0); ABG PARTIAL PRESSURE CO2 32.2 mmHg (35.0-45.0); ABG TOTAL CO2 24.5 MMOL/L (22.0-29.0); ABG pH (ARTERIAL) 7.481 UNITS (7.350-7.450)
[2023-01-15] MEDS: IPRATROPIUM 0.5MG/ALBUTEROL 2.5MG INH SOL UD 3ML (DUONEB) NEB SCH ×4 (07:33→20:12)
[2023-01-15] MEDS: PANTOPRAZOLE 40MG VIAL IV SCH (08:45)
[2023-01-15] MEDS: CHLORHEXIDINE GLUCONATE 0.12 % 15ML UDC (PERIDEX ORAL RINSE) MT SCH ×2 (08:45→20:27)
[2023-01-15] MEDS: ENOXAPARIN 40MG/0.4ML SYRINGE (J1650 PER 10MG) SC SCH (08:45)
[2023-01-15 10:07] LABS: ABG BASE EXCESS -0.2 (-2.0-2.0); ABG HCO3 23.4 MMOL/L (22.0-26.0); ABG O2 SATURATION 98.8 % (95.0-99.0); ABG PARTIAL PRESSURE CO2 34.5 mmHg (35.0-45.0); ABG PARTIAL PRESSURE O2 120.3 mmHg (75.0-100.0); ABG STANDARD HCO3 24.4 MMOL/L. (22.0-26.0); ABG TOTAL CO2 24.4 MMOL/L (22.0-29.0); ABG pH (ARTERIAL) 7.449 UNITS (7.350-7.450)
[2023-01-15] MEDS ORDERED: KETOROLAC 30 MG/ML 1ML VIAL IV ONE (10:50)
[2023-01-15] MEDS ORDERED: ROCURONIUM BROMIDE 50MG/5ML VIAL IV SCH (12:40)
[2023-01-15] MEDS ORDERED: propofoL 200 MG/20 ML VIAL IV ONE (12:40)
[2023-01-15] MEDS: propofoL 1,000 MG in IV 1 EA IV SCH ×3 (13:33→23:00)
[2023-01-15] MEDS ORDERED: MIDAZOLAM INJ 2MG/2ML VIAL IV STA (14:10)
[2023-01-15 16:55] LABS: ABG BASE EXCESS 2.6 (-2.0-2.0); ABG HCO3 23.5 MMOL/L (22.0-26.0); ABG O2 SATURATION 98.7 % (95.0-99.0); ABG PARTIAL PRESSURE CO2 25.2 mmHg (35.0-45.0); ABG PARTIAL PRESSURE O2 133.9 mmHg (75.0-100.0); ABG STANDARD HCO3 26.8 MMOL/L. (22.0-26.0); ABG TOTAL CO2 24.2 MMOL/L (22.0-29.0); ABG pH (ARTERIAL) 7.587 UNITS (7.350-7.450)
[2023-01-15] MEDS: fentaNYL 100 MCG/2 ML INJECTION IV PRN (19:27)
[2023-01-16] VITALS (87 sets, daily range): BP systolic 94–165; BP diastolic 52–100; TEMP 93.3–99.7; O2SAT 95–100
[2023-01-16 04:43] LABS: HEMATOCRIT 31.2 % (36.0-47.0); HEMOGLOBIN 10.1 g/dl (12.0-15.5); MEAN CORPUSCULAR HEMOGLOBIN 27.1 pg (27.0-33.0); MEAN CORPUSCULAR HGB CONC 32.4 g/dl (32.0-36.5); MEAN CORPUSCULAR VOLUME 83.6 fl (80.0-96.0); PLATELET COUNT, AUTOMATED 206 10^3/uL (150-450); RED BLOOD COUNT 3.73 10^6/uL (4.00-5.40); WHITE BLOOD COUNT 5.3 10^3/uL (4.0-10.0)
[2023-01-16 05:05] LABS: ALBUMIN 2.5 G/DL (3.2-5.2); ALKALINE PHOSPHATASE 71 U/L (46-116); ALT/SGPT < 9 U/L (7.0-40); AST/SGOT 17 U/L (<34); BILIRUBIN,TOTAL 0.9 MG/DL (0.3-1.2); BLOOD UREA NITROGEN 10 MG/DL (9-23); CALCIUM LEVEL 8.1 MG/DL (8.5-10.1); CARBON DIOXIDE LEVEL 22 MMOL/L (20-31); CHLORIDE LEVEL 115 MMOL/L (98-107); CREATININE FOR GFR 0.74 MG/DL (0.55-1.30); GLOMERULAR FILTRATION RATE > 60.0 (>51); GLUCOSE, FASTING 87 MG/DL (60-100); MAGNESIUM LEVEL 1.8 MG/DL (1.8-2.4); SODIUM LEVEL 149 MMOL/L (136-145); TOTAL PROTEIN 4.8 G/DL (5.7-8.2)
[2023-01-16 05:48] LABS: ABG BASE EXCESS 0.1 (-2.0-2.0); ABG HCO3 21.3 MMOL/L (22.0-26.0); ABG O2 SATURATION 96.7 % (95.0-99.0); ABG PARTIAL PRESSURE CO2 24.5 mmHg (35.0-45.0); ABG PARTIAL PRESSURE O2 81.1 mmHg (75.0-100.0); ABG STANDARD HCO3 24.6 MMOL/L. (22.0-26.0); ABG pH (ARTERIAL) 7.557 UNITS (7.350-7.450)
[2023-01-16] MEDS: LR 1,000 ML IV SCH ×2 (06:12→19:34)
[2023-01-16] MEDS: PIPERACILLIN/TAZOBACTAM SOD 3.375 GM in D5W MINI-BAG PLUS 50 ML IV SCH ×4 (06:12→22:07)
[2023-01-16] MEDS: propofoL 1,000 MG in IV 1 EA IV SCH ×3 (06:36→23:19)
[2023-01-16] MEDS: IPRATROPIUM 0.5MG/ALBUTEROL 2.5MG INH SOL UD 3ML (DUONEB) NEB SCH ×4 (07:25→19:48)
[2023-01-16] MEDS: CHLORHEXIDINE GLUCONATE 0.12 % 15ML UDC (PERIDEX ORAL RINSE) MT SCH ×2 (09:28→19:34)
[2023-01-16] MEDS: ENOXAPARIN 40MG/0.4ML SYRINGE (J1650 PER 10MG) SC SCH (09:28)
[2023-01-16] MEDS: PANTOPRAZOLE 40MG VIAL IV SCH (09:28)
[2023-01-16] MEDS: LORazepam 2 MG/ML 1ML VIAL IV PRN ×2 (13:13→16:10)
[2023-01-16] MEDS: fentaNYL 100 MCG/2 ML INJECTION IV PRN (16:10)
[2023-01-17] VITALS (46 sets, daily range): BP systolic 89–143; BP diastolic 51–88; TEMP 97.5–99.9; O2SAT 92–97
[2023-01-17] MEDS ORDERED: levETIRAcetam INJection 500 MG in D5W MINI-BAG PLUS 100 ML IV SCH (01:00)
[2023-01-17] MEDS: propofoL 1,000 MG in IV 1 EA IV SCH ×3 (03:24→22:37)
[2023-01-17 04:35] LABS: HEMATOCRIT 30.9 % (36.0-47.0); MEAN CORPUSCULAR HEMOGLOBIN 26.7 pg (27.0-33.0); MEAN CORPUSCULAR HGB CONC 32.4 g/dl (32.0-36.5); MEAN CORPUSCULAR VOLUME 82.4 fl (80.0-96.0); PLATELET COUNT, AUTOMATED 215 10^3/uL (150-450); RED BLOOD COUNT 3.75 10^6/uL (4.00-5.40)
[2023-01-17 05:00] LABS: ALBUMIN 2.4 G/DL (3.2-5.2); ALKALINE PHOSPHATASE 69 U/L (46-116); ALT/SGPT < 9 U/L (7.0-40); AST/SGOT 17 U/L (<34); BILIRUBIN,TOTAL 0.8 MG/DL (0.3-1.2); BLOOD UREA NITROGEN 11 MG/DL (9-23); CALCIUM LEVEL 7.5 MG/DL (8.5-10.1); CARBON DIOXIDE LEVEL 23 MMOL/L (20-31); CHLORIDE LEVEL 114 MMOL/L (98-107); CREATININE FOR GFR 0.96 MG/DL (0.55-1.30); GLOMERULAR FILTRATION RATE > 60.0 (>51); GLUCOSE, FASTING 84 MG/DL (60-100); MAGNESIUM LEVEL 1.8 MG/DL (1.8-2.4); SODIUM LEVEL 148 MMOL/L (136-145); TOTAL PROTEIN 4.8 G/DL (5.7-8.2)
[2023-01-17] MEDS: PIPERACILLIN/TAZOBACTAM SOD 3.375 GM in D5W MINI-BAG PLUS 50 ML IV SCH ×4 (05:07→22:35)
[2023-01-17 05:48] LABS: ABG BASE EXCESS -2.1 (-2.0-2.0); ABG HCO3 19.2 MMOL/L (22.0-26.0); ABG O2 SATURATION 94.8 % (95.0-99.0); ABG PARTIAL PRESSURE CO2 23.2 mmHg (35.0-45.0); ABG PARTIAL PRESSURE O2 70.3 mmHg (75.0-100.0); ABG STANDARD HCO3 22.6 MMOL/L. (22.0-26.0); ABG TOTAL CO2 19.9 MMOL/L (22.0-29.0); ABG pH (ARTERIAL) 7.535 UNITS (7.350-7.450)
[2023-01-17] MEDS: IPRATROPIUM 0.5MG/ALBUTEROL 2.5MG INH SOL UD 3ML (DUONEB) NEB SCH ×4 (07:37→19:26)
[2023-01-17] MEDS: KCL 10MEQ/100ML SWI (KRUN) 10 MEQ in IV 1 EA IV SCH ×4 (07:49→19:17)
[2023-01-17] MEDS: ENOXAPARIN 40MG/0.4ML SYRINGE (J1650 PER 10MG) SC SCH (08:54)
[2023-01-17] MEDS: PANTOPRAZOLE 40MG VIAL IV SCH (08:54)
[2023-01-17] MEDS: CHLORHEXIDINE GLUCONATE 0.12 % 15ML UDC (PERIDEX ORAL RINSE) MT SCH ×2 (08:54→20:35)
[2023-01-17] MEDS ORDERED: NS IV ONE (09:00)
[2023-01-17] MEDS ORDERED: POTASSIUM CHLORIDE IV ONE (09:00)
[2023-01-17] MEDS: MIDAZOLAM INJ 2MG/2ML VIAL IV PRN ×2 (11:12→13:38)
[2023-01-17] MEDS: fentaNYL 100 MCG/2 ML INJECTION IV PRN (11:27)
[2023-01-17] MEDS ORDERED: levETIRAcetam INJection 1,000 MG in D5W 100 ML IV ONE (13:00)
[2023-01-17] MEDS: LR 1,000 ML IV SCH (16:51)
[2023-01-17] MEDS ORDERED: KCL 10MEQ/100ML SWI (KRUN) 10 MEQ in IV 1 EA IV ONE (16:55)
[2023-01-18] VITALS (70 sets, daily range): BP systolic 85–160; BP diastolic 50–97; TEMP 97.2–99.7; O2SAT 93–100
[2023-01-18] MEDS ORDERED: levETIRAcetam INJection 500 MG in D5W MINI-BAG PLUS 100 ML IV SCH (01:00)
[2023-01-18 05:07] LABS: HEMATOCRIT 35.1 % (36.0-47.0); HEMOGLOBIN 10.9 g/dl (12.0-15.5); MEAN CORPUSCULAR HEMOGLOBIN 26.6 pg (27.0-33.0); MEAN CORPUSCULAR HGB CONC 31.1 g/dl (32.0-36.5); MEAN CORPUSCULAR VOLUME 85.6 fl (80.0-96.0); PLATELET COUNT, AUTOMATED 226 10^3/uL (150-450); WHITE BLOOD COUNT 5.6 10^3/uL (4.0-10.0)
[2023-01-18] MEDS: PIPERACILLIN/TAZOBACTAM SOD 3.375 GM in D5W MINI-BAG PLUS 50 ML IV SCH (05:22)
[2023-01-18 05:23] LABS: ALBUMIN 2.6 G/DL (3.2-5.2); ALKALINE PHOSPHATASE 73 U/L (46-116); ALT/SGPT 14 U/L (7.0-40); AST/SGOT 34 U/L (<34); BILIRUBIN,TOTAL 0.7 MG/DL (0.3-1.2); BLOOD UREA NITROGEN 13 MG/DL (9-23); CALCIUM LEVEL 7.8 MG/DL (8.5-10.1); CARBON DIOXIDE LEVEL 25 MMOL/L (20-31); CHLORIDE LEVEL 112 MMOL/L (98-107); CREATININE FOR GFR 0.79 MG/DL (0.55-1.30); GLOMERULAR FILTRATION RATE > 60.0 (>51); GLUCOSE, FASTING 98 MG/DL (60-100); MAGNESIUM LEVEL 2.1 MG/DL (1.8-2.4); PHOSPHORUS LEVEL 3.9 MG/DL (2.5-4.9); POTASSIUM SERUM 3.7 MMOL/L (3.5-5.1); SODIUM LEVEL 145 MMOL/L (136-145); TOTAL PROTEIN 5.3 G/DL (5.7-8.2)
[2023-01-18] MEDS: propofoL 1,000 MG in IV 1 EA IV SCH ×3 (05:41→22:46)
[2023-01-18 05:51] LABS: ABG BASE EXCESS -1.9 (-2.0-2.0); ABG HCO3 21.2 MMOL/L (22.0-26.0); ABG O2 SATURATION 95.4 % (95.0-99.0); ABG PARTIAL PRESSURE CO2 30.6 mmHg (35.0-45.0); ABG PARTIAL PRESSURE O2 78.6 mmHg (75.0-100.0); ABG STANDARD HCO3 22.8 MMOL/L. (22.0-26.0); ABG TOTAL CO2 22.1 MMOL/L (22.0-29.0); ABG pH (ARTERIAL) 7.458 UNITS (7.350-7.450)
[2023-01-18] MEDS: IPRATROPIUM 0.5MG/ALBUTEROL 2.5MG INH SOL UD 3ML (DUONEB) NEB SCH ×4 (07:26→19:36)
[2023-01-18] MEDS: ENOXAPARIN 40MG/0.4ML SYRINGE (J1650 PER 10MG) SC SCH (09:35)
[2023-01-18] MEDS: PANTOPRAZOLE 40MG VIAL IV SCH (09:35)
[2023-01-18] MEDS: CHLORHEXIDINE GLUCONATE 0.12 % 15ML UDC (PERIDEX ORAL RINSE) MT SCH ×2 (09:36→21:17)
[2023-01-18] MEDS: LR 1,000 ML IV SCH (12:50)
[2023-01-18] MEDS: levETIRAcetam INJection 500 MG in D5W MINI-BAG PLUS 100 ML IV SCH (14:20)
[2023-01-19] VITALS (35 sets, daily range): BP systolic 100–160; BP diastolic 64–105; TEMP 97.5–100; O2SAT 91–98
[2023-01-19] MEDS: levETIRAcetam INJection 500 MG in D5W MINI-BAG PLUS 100 ML IV SCH ×2 (01:57→17:02)
[2023-01-19] MEDS: propofoL 1,000 MG in IV 1 EA IV SCH ×4 (05:07→22:05)
[2023-01-19 05:53] LABS: ABG BASE EXCESS 0.6 (-2.0-2.0); ABG O2 SATURATION 94.8 % (95.0-99.0); ABG PARTIAL PRESSURE CO2 39.4 mmHg (35.0-45.0); ABG PARTIAL PRESSURE O2 72.8 mmHg (75.0-100.0); ABG STANDARD HCO3 24.9 MMOL/L. (22.0-26.0); ABG TOTAL CO2 26.2 MMOL/L (22.0-29.0)
[2023-01-19 05:56] LABS: HEMATOCRIT 37.5 % (36.0-47.0); HEMOGLOBIN 11.5 g/dl (12.0-15.5); MEAN CORPUSCULAR HEMOGLOBIN 26.4 pg (27.0-33.0); MEAN CORPUSCULAR HGB CONC 30.7 g/dl (32.0-36.5); MEAN CORPUSCULAR VOLUME 86.2 fl (80.0-96.0); PLATELET COUNT, AUTOMATED 215 10^3/uL (150-450); RED BLOOD COUNT 4.35 10^6/uL (4.00-5.40); WHITE BLOOD COUNT 6.7 10^3/uL (4.0-10.0)
[2023-01-19 06:16] LABS: ALBUMIN 2.9 G/DL (3.2-5.2); ALKALINE PHOSPHATASE 82 U/L (46-116); ALT/SGPT 21 U/L (7.0-40); AST/SGOT 40 U/L (<34); BILIRUBIN,TOTAL 0.5 MG/DL (0.3-1.2); BLOOD UREA NITROGEN 13 MG/DL (9-23); CALCIUM LEVEL 8.7 MG/DL (8.5-10.1); CARBON DIOXIDE LEVEL 26 MMOL/L (20-31); CHLORIDE LEVEL 112 MMOL/L (98-107); CREATININE FOR GFR 0.65 MG/DL (0.55-1.30); GLOMERULAR FILTRATION RATE > 60.0 (>51); GLUCOSE, FASTING 99 MG/DL (60-100); MAGNESIUM LEVEL 2.1 MG/DL (1.8-2.4); POTASSIUM SERUM 4.1 MMOL/L (3.5-5.1); SODIUM LEVEL 145 MMOL/L (136-145)
[2023-01-19] MEDS: IPRATROPIUM 0.5MG/ALBUTEROL 2.5MG INH SOL UD 3ML (DUONEB) NEB SCH ×3 (07:24→20:28)
[2023-01-19] MEDS: CHLORHEXIDINE GLUCONATE 0.12 % 15ML UDC (PERIDEX ORAL RINSE) MT SCH ×2 (08:40→21:04)
[2023-01-19] MEDS: PANTOPRAZOLE 40MG VIAL IV SCH (08:40)
[2023-01-19] MEDS: ENOXAPARIN 40MG/0.4ML SYRINGE (J1650 PER 10MG) SC SCH (08:41)
[2023-01-19] MEDS: LR 1,000 ML IV SCH (08:44)
[2023-01-19] MEDS ORDERED: FUROSEMIDE 40MG/4ML VIAL IV ONE (09:00)
[2023-01-19] MEDS: fentaNYL 100 MCG/2 ML INJECTION IV PRN (11:07)
[2023-01-19] MEDS: MIDAZOLAM INJ 2MG/2ML VIAL IV PRN (15:41)
[2023-01-20] VITALS (24 sets, daily range): BP systolic 101–147; BP diastolic 58–91; TEMP 97.4–98.1; O2SAT 92–97
[2023-01-20] MEDS: levETIRAcetam INJection 500 MG in D5W MINI-BAG PLUS 100 ML IV SCH ×2 (02:10→15:20)
[2023-01-20] MEDS: propofoL 1,000 MG in IV 1 EA IV SCH ×5 (03:35→22:55)
[2023-01-20 04:46] LABS: HEMATOCRIT 43.3 % (36.0-47.0); HEMOGLOBIN 13.3 g/dl (12.0-15.5); MEAN CORPUSCULAR HEMOGLOBIN 26.1 pg (27.0-33.0); MEAN CORPUSCULAR HGB CONC 30.7 g/dl (32.0-36.5); MEAN CORPUSCULAR VOLUME 85.1 fl (80.0-96.0); PLATELET COUNT, AUTOMATED 239 10^3/uL (150-450); RED BLOOD COUNT 5.09 10^6/uL (4.00-5.40); WHITE BLOOD COUNT 7.4 10^3/uL (4.0-10.0)
[2023-01-20 05:19] LABS: ALBUMIN 3.1 G/DL (3.2-5.2); ALKALINE PHOSPHATASE 90 U/L (46-116); ALT/SGPT 22 U/L (7.0-40); AST/SGOT 36 U/L (<34); BILIRUBIN,TOTAL 0.5 MG/DL (0.3-1.2); BLOOD UREA NITROGEN 18 MG/DL (9-23); CARBON DIOXIDE LEVEL 28 MMOL/L (20-31); CHLORIDE LEVEL 105 MMOL/L (98-107); CREATININE FOR GFR 0.63 MG/DL (0.55-1.30); GLOMERULAR FILTRATION RATE > 60.0 (>51); GLUCOSE, FASTING 102 MG/DL (60-100); MAGNESIUM LEVEL 2.3 MG/DL (1.8-2.4); POTASSIUM SERUM 4.1 MMOL/L (3.5-5.1); SODIUM LEVEL 142 MMOL/L (136-145); TOTAL PROTEIN 6.5 G/DL (5.7-8.2)
[2023-01-20 06:00] LABS: ABG BASE EXCESS 4.8 (-2.0-2.0); ABG HCO3 29.9 MMOL/L (22.0-26.0); ABG O2 SATURATION 95.3 % (95.0-99.0); ABG PARTIAL PRESSURE CO2 45.8 mmHg (35.0-45.0); ABG PARTIAL PRESSURE O2 75.7 mmHg (75.0-100.0); ABG STANDARD HCO3 28.8 MMOL/L. (22.0-26.0); ABG TOTAL CO2 31.3 MMOL/L (22.0-29.0); ABG pH (ARTERIAL) 7.432 UNITS (7.350-7.450)
[2023-01-20] MEDS: IPRATROPIUM 0.5MG/ALBUTEROL 2.5MG INH SOL UD 3ML (DUONEB) NEB SCH ×5 (07:46→19:06)
[2023-01-20] MEDS: CHLORHEXIDINE GLUCONATE 0.12 % 15ML UDC (PERIDEX ORAL RINSE) MT SCH ×2 (08:05→20:17)
[2023-01-20] MEDS: ENOXAPARIN 40MG/0.4ML SYRINGE (J1650 PER 10MG) SC SCH (08:06)
[2023-01-20] MEDS: PANTOPRAZOLE 40MG VIAL IV SCH (08:06)
[2023-01-20] MEDS: MIDAZOLAM INJ 2MG/2ML VIAL IV PRN (15:21)
[2023-01-21] VITALS (23 sets, daily range): BP systolic 92–147; BP diastolic 52–87; TEMP 96.7–97.9; O2SAT 93–97
[2023-01-21] MEDS: levETIRAcetam INJection 500 MG in D5W MINI-BAG PLUS 100 ML IV SCH ×2 (02:10→14:42)
[2023-01-21] MEDS: propofoL 1,000 MG in IV 1 EA IV SCH ×2 (02:53→08:30)
[2023-01-21 04:38] LABS: HEMATOCRIT 42.3 % (36.0-47.0); HEMOGLOBIN 14.1 g/dl (12.0-15.5); MEAN CORPUSCULAR HEMOGLOBIN 28.2 pg (27.0-33.0); MEAN CORPUSCULAR HGB CONC 33.3 g/dl (32.0-36.5); MEAN CORPUSCULAR VOLUME 84.6 fl (80.0-96.0); PLATELET COUNT, AUTOMATED 246 10^3/uL (150-450); WHITE BLOOD COUNT 8.4 10^3/uL (4.0-10.0)
[2023-01-21 04:57] LABS: ALBUMIN 3.1 G/DL (3.2-5.2); ALKALINE PHOSPHATASE 90 U/L (46-116); ALT/SGPT 20 U/L (7.0-40); AST/SGOT 22 U/L (<34); BILIRUBIN,TOTAL 0.4 MG/DL (0.3-1.2); BLOOD UREA NITROGEN 25 MG/DL (9-23); CALCIUM LEVEL 8.9 MG/DL (8.5-10.1); CARBON DIOXIDE LEVEL 25 MMOL/L (20-31); CHLORIDE LEVEL 106 MMOL/L (98-107); CREATININE FOR GFR 0.65 MG/DL (0.55-1.30); GLOMERULAR FILTRATION RATE > 60.0 (>51); GLUCOSE, FASTING 100 MG/DL (60-100); MAGNESIUM LEVEL 2.2 MG/DL (1.8-2.4); POTASSIUM SERUM 4.5 MMOL/L (3.5-5.1); SODIUM LEVEL 141 MMOL/L (136-145); TOTAL PROTEIN 6.5 G/DL (5.7-8.2)
[2023-01-21 05:55] LABS: ABG BASE EXCESS 1.8 (-2.0-2.0); ABG HCO3 26.1 MMOL/L (22.0-26.0); ABG O2 SATURATION 94.1 % (95.0-99.0); ABG PARTIAL PRESSURE CO2 39.8 mmHg (35.0-45.0); ABG PARTIAL PRESSURE O2 69.1 mmHg (75.0-100.0); ABG TOTAL CO2 27.3 MMOL/L (22.0-29.0); ABG pH (ARTERIAL) 7.435 UNITS (7.350-7.450)
[2023-01-21] MEDS: IPRATROPIUM 0.5MG/ALBUTEROL 2.5MG INH SOL UD 3ML (DUONEB) NEB SCH ×3 (07:24→15:05)
[2023-01-21] MEDS: PANTOPRAZOLE 40MG VIAL IV SCH (09:36)
[2023-01-21] MEDS: CHLORHEXIDINE GLUCONATE 0.12 % 15ML UDC (PERIDEX ORAL RINSE) MT SCH (09:36)
[2023-01-21] MEDS: ENOXAPARIN 40MG/0.4ML SYRINGE (J1650 PER 10MG) SC SCH (09:37)
[2023-01-21 11:48] LABS: ABG BASE EXCESS 5.9 (-2.0-2.0); ABG HCO3 29.9 MMOL/L (22.0-26.0); ABG O2 SATURATION 93.5 % (95.0-99.0); ABG PARTIAL PRESSURE CO2 41.1 mmHg (35.0-45.0); ABG PARTIAL PRESSURE O2 65.4 mmHg (75.0-100.0); ABG STANDARD HCO3 29.7 MMOL/L. (22.0-26.0); ABG TOTAL CO2 31.2 MMOL/L (22.0-29.0)
[2023-01-21] MEDS ORDERED: dexAMETHasone 20MG/5ML VIAL IV ONE (15:15)
[2023-01-21] MEDS: ALBUTEROL SULFATE 2.5MG/0.5ML INH NEB SOLN NEB PRN (19:22)
[2023-01-22] VITALS: BP 157/95; TEMP 98.4; O2SAT 95
[2023-01-22] MEDS: levETIRAcetam INJection 500 MG in D5W MINI-BAG PLUS 100 ML IV SCH (01:21)
[2023-01-22 04:00] VITALS: BP 159/97; TEMP 98.5; O2SAT 98
[2023-01-22 04:34] LABS: HEMATOCRIT 43.7 % (36.0-47.0); HEMOGLOBIN 13.2 g/dl (12.0-15.5); MEAN CORPUSCULAR HEMOGLOBIN 26.4 pg (27.0-33.0); MEAN CORPUSCULAR HGB CONC 30.2 g/dl (32.0-36.5); MEAN CORPUSCULAR VOLUME 87.4 fl (80.0-96.0); PLATELET COUNT, AUTOMATED 288 10^3/uL (150-450); WHITE BLOOD COUNT 10.3 10^3/uL (4.0-10.0)
[2023-01-22 05:27] LABS: ALBUMIN 3.5 G/DL (3.2-5.2); ALKALINE PHOSPHATASE 96 U/L (46-116); ALT/SGPT 18 U/L (7.0-40); AST/SGOT 23 U/L (<34); BILIRUBIN,TOTAL 0.9 MG/DL (0.3-1.2); BLOOD UREA NITROGEN 24 MG/DL (9-23); CALCIUM LEVEL 9.5 MG/DL (8.5-10.1); CARBON DIOXIDE LEVEL 19 MMOL/L (20-31); CHLORIDE LEVEL 109 MMOL/L (98-107); CREATININE FOR GFR 0.55 MG/DL (0.55-1.30); GLOMERULAR FILTRATION RATE > 60.0 (>51); GLUCOSE, FASTING 89 MG/DL (60-100); SODIUM LEVEL 142 MMOL/L (136-145); TOTAL PROTEIN 7.1 G/DL (5.7-8.2)
[2023-01-22] MEDS: ALBUTEROL SULFATE 2.5MG/0.5ML INH NEB SOLN NEB PRN ×3 (07:23→20:17)
[2023-01-22] MEDS: ENOXAPARIN 40MG/0.4ML SYRINGE (J1650 PER 10MG) SC SCH (07:59)
[2023-01-22 08:00] VITALS: BP 142/86; TEMP 98.9; O2SAT 99
[2023-01-22 14:00] VITALS: BP 130/69; TEMP 98.2; O2SAT 97
[2023-01-22 17:30] VITALS: BP 136/85; TEMP 98.4; O2SAT 92
[2023-01-22] MEDS: CALCIUM CARBONATE 500 MG CHEW U/D PO PRN (18:43)
[2023-01-22] MEDS ORDERED: MAALOX 30 ML SUSP *UDC PO ONE (19:00)
[2023-01-22] MEDS: THIAMINE 100 MG TAB PO SCH (20:13)
[2023-01-23 02:58] VITALS: BP 139/82; TEMP 98.1; O2SAT 96
[2023-01-23] MEDS ORDERED: OLANZapine 2.5MG TABLET PO ONE (03:40)
[2023-01-23 06:51] LABS: HEMATOCRIT 36.9 % (36.0-47.0); HEMOGLOBIN 11.7 g/dl (12.0-15.5); MEAN CORPUSCULAR HGB CONC 31.7 g/dl (32.0-36.5); PLATELET COUNT, AUTOMATED 292 10^3/uL (150-450); RED BLOOD COUNT 4.34 10^6/uL (4.00-5.40); WHITE BLOOD COUNT 6.4 10^3/uL (4.0-10.0)
[2023-01-23 07:15] LABS: ALBUMIN 3.2 G/DL (3.2-5.2); ALKALINE PHOSPHATASE 80 U/L (46-116); ALT/SGPT 16 U/L (7.0-40); AST/SGOT 13 U/L (<34); BILIRUBIN,TOTAL 0.9 MG/DL (0.3-1.2); BLOOD UREA NITROGEN 33 MG/DL (9-23); CALCIUM LEVEL 8.8 MG/DL (8.5-10.1); CARBON DIOXIDE LEVEL 28 MMOL/L (20-31); CHLORIDE LEVEL 107 MMOL/L (98-107); CREATININE FOR GFR 0.61 MG/DL (0.55-1.30); GLOMERULAR FILTRATION RATE > 60.0 (>51); GLUCOSE, FASTING 88 MG/DL (60-100); POTASSIUM SERUM 3.3 MMOL/L (3.5-5.1); SODIUM LEVEL 144 MMOL/L (136-145); TOTAL PROTEIN 6.3 G/DL (5.7-8.2)
[2023-01-23] MEDS: MULTIVITAMINS/MINERALS THERAP 1 TAB PO SCH (08:42)
[2023-01-23] MEDS: THIAMINE 100 MG TAB PO SCH ×2 (08:42→20:56)
[2023-01-23] MEDS: ENOXAPARIN 40MG/0.4ML SYRINGE (J1650 PER 10MG) SC SCH (08:42)
[2023-01-23] MEDS: FOLIC ACID 1MG TAB PO SCH (08:42)
[2023-01-23] MEDS ORDERED: POTASSIUM CHLORIDE 10MEQ SR TABLET PO ONE (14:00)
[2023-01-23 20:22] VITALS: BP 133/91; TEMP 98.4; O2SAT 97
[2023-01-23] MEDS: RAMELTEON 8 MG TAB (ROZEREM) PO PRN (22:04)
[2023-01-24] MEDS: ACETAMINOPHEN TAB 650MG DOSE (2X325MG) PO PRN (04:10)
[2023-01-24 05:19] VITALS: BP 111/86; TEMP 98.8; O2SAT 97
[2023-01-24 07:42] LABS: HEMATOCRIT 40.2 % (36.0-47.0); HEMOGLOBIN 12.7 g/dl (12.0-15.5); MEAN CORPUSCULAR HGB CONC 31.6 g/dl (32.0-36.5); MEAN CORPUSCULAR VOLUME 85.4 fl (80.0-96.0); PLATELET COUNT, AUTOMATED 344 10^3/uL (150-450); RED BLOOD COUNT 4.71 10^6/uL (4.00-5.40); WHITE BLOOD COUNT 7.6 10^3/uL (4.0-10.0)
[2023-01-24] MEDS: ENOXAPARIN 40MG/0.4ML SYRINGE (J1650 PER 10MG) SC SCH (08:36)
[2023-01-24] MEDS: IBUPROFEN 400MG TAB PO PRN (08:36)
[2023-01-24] MEDS: THIAMINE 100 MG TAB PO SCH ×2 (08:36→20:13)
[2023-01-24] MEDS: FOLIC ACID 1MG TAB PO SCH (08:36)
[2023-01-24] MEDS: MULTIVITAMINS/MINERALS THERAP 1 TAB PO SCH (08:36)
[2023-01-24] MEDS ORDERED: FUROSEMIDE 10MG PER 1/2 TABLET PO ONE (19:00)
[2023-01-24 20:00] VITALS: BP 119/75; TEMP 98.4; O2SAT 97
[2023-01-24] MEDS: RAMELTEON 8 MG TAB (ROZEREM) PO PRN (20:42)
[2023-01-25 06:00] VITALS: BP 117/74; TEMP 97.9; O2SAT 97
[2023-01-25 06:55] VITALS: BP 146/86; TEMP 98.8; O2SAT 98
[2023-01-25] MEDS ORDERED: POTASSIUM CHLORIDE 10% LIQ 20MEQ/15ML UDC PO ONE (08:15)
[2023-01-25] MEDS: ENOXAPARIN 40MG/0.4ML SYRINGE (J1650 PER 10MG) SC SCH (09:00)
[2023-01-25] MEDS: MULTIVITAMINS/MINERALS THERAP 1 TAB PO SCH (09:11)
[2023-01-25] MEDS: THIAMINE 100 MG TAB PO SCH (09:11)
[2023-01-25] MEDS: FOLIC ACID 1MG TAB PO SCH (09:11)
[2023-01-25] MEDS: IBUPROFEN 400MG TAB PO PRN (11:44)
[2023-01-25 14:00] VITALS: BP 152/87; TEMP 98.4; O2SAT 98
[2023-01-25] MEDS: lisinopriL 5 MG TAB PO SCH ×2 (14:46→15:22)
[2023-01-25] MEDS: CALCIUM CARBONATE 500 MG CHEW U/D PO PRN (17:08)
[2023-01-25] MEDS: ACETAMINOPHEN TAB 650MG DOSE (2X325MG) PO PRN (18:02)
[2023-01-25 20:00] VITALS: BP 120/76; TEMP 98.1; O2SAT 100
[2023-01-25] MEDS ORDERED: OLANZapine 5 MG TAB PO ONE (20:15)
[2023-01-25] MEDS ORDERED: hydrOXYzine 50 MG TAB PO PRN (21:05)
[2023-01-25] MEDS ORDERED: RAMELTEON 8 MG TAB (ROZEREM) PO PRN (21:05)
[2023-01-26 06:28] LABS: BLOOD UREA NITROGEN 20 MG/DL (9-23); CALCIUM LEVEL 8.6 MG/DL (8.5-10.1); CARBON DIOXIDE LEVEL 28 MMOL/L (20-31); CHLORIDE LEVEL 107 MMOL/L (98-107); CREATININE FOR GFR 0.62 MG/DL (0.55-1.30); GLOMERULAR FILTRATION RATE > 60.0 (>51); GLUCOSE, FASTING 97 MG/DL (60-100); POTASSIUM SERUM 3.8 MMOL/L (3.5-5.1); SODIUM LEVEL 144 MMOL/L (136-145)
[2023-01-26] MEDS: FOLIC ACID 1MG TAB PO SCH (09:00)
[2023-01-26] MEDS: ENOXAPARIN 40MG/0.4ML SYRINGE (J1650 PER 10MG) SC SCH (09:00)
[2023-01-26] MEDS: MULTIVITAMINS/MINERALS THERAP 1 TAB PO SCH (09:00)
[2023-01-26] MEDS: lisinopriL 5 MG TAB PO SCH (09:50)
[2023-01-26] MEDS ORDERED: LISI5TAB11 PO (11:07)
[2023-01-26] MEDS ORDERED: THIA100TA PO (11:07)
[2023-01-26] MEDS ORDERED: FOLI1TAB11 PO (11:07)
[2023-01-26] MEDS ORDERED: clonazePAM 0.5 MG TAB PO PRN (15:25)
[2023-01-26 20:00] VITALS: BP 125/70; TEMP 98.2; O2SAT 100
[2023-01-26] MEDS: PRAZOSIN 1 MG CAP PO SCH (20:49)
[2023-01-26] MEDS: clonazePAM 0.5 MG TAB PO PRN (23:16)
[2023-01-27 06:50] VITALS: BP 110/60; TEMP 97.9; O2SAT 97
[2023-01-27] MEDS: ENOXAPARIN 40MG/0.4ML SYRINGE (J1650 PER 10MG) SC SCH (09:00)
[2023-01-27] MEDS: MULTIVITAMINS/MINERALS THERAP 1 TAB PO SCH (09:00)
[2023-01-27] MEDS: FOLIC ACID 1MG TAB PO SCH (09:00)
[2023-01-27] MEDS: clonazePAM 0.5 MG TAB PO PRN ×2 (09:36→20:03)
[2023-01-27] MEDS: lisinopriL 5 MG TAB PO SCH (09:36)
[2023-01-27 20:00] VITALS: BP 150/86; TEMP 98.8; O2SAT 96
[2023-01-27 20:03] VITALS: BP 150/86
[2023-01-27] MEDS: PRAZOSIN 1 MG CAP PO SCH (20:03)
[2023-01-28] MEDS ORDERED: LISI5TAB11 PO (01:21)
[2023-01-28] MEDS ORDERED: THIA100T7 PO (01:21)
[2023-01-28] MEDS ORDERED: FOLI1TAB11 PO (01:21)
== END 2023-01-27 20:35 | DRG 812 ==
LOC: M ED 00:29 → M ED INP 02:57 → M ICU 03:45 → M MSPAV 01-22 17:27 → M PSY 01-27 20:41 → M ED INP 01-27 20:43 → M PSY 01-27 20:43
PROVIDERS: ADMIT Internal Medicine; ATTEND Student in an Organized Health Care Education/Training Program
PROC: 5A1945Z Respiratory Ventilation, 24-96 Consecutive Hours (ICD-10-PCS; principal; 2023-01-14)
DX: T42.4X2A Poisoning by benzodiazepines, intentional self-harm, initial encounter (principal); J96.01 Acute respiratory failure with hypoxia; J69.0 Pneumonitis due to inhalation of food and vomit; G62.81 Critical illness polyneuropathy; G92.8 Other toxic encephalopathy; B37.0 Candidal stomatitis; E87.20 Acidosis, unspecified; R45.851 Suicidal ideations; E87.6 Hypokalemia; F32.9 Major depressive disorder, single episode, unspecified; F43.10 Post-traumatic stress disorder, unspecified; F60.3 Borderline personality disorder; G40.909 Epilepsy, unspecified, not intractable, without status epilepticus; G80.9 Cerebral palsy, unspecified; T42.8X2A Poisoning by antiparkinsonism drugs and other central muscle-tone depressants, intentional self-harm, initial encounter; D72.829 Elevated white blood cell count, unspecified; F10.10 Alcohol abuse, uncomplicated; Z88.5 Allergy status to narcotic agent; Z88.8 Allergy status to other drugs, medicaments and biological substances; Z79.899 Other long term (current) drug therapy; K44.9 Diaphragmatic hernia without obstruction or gangrene; K59.00 Constipation, unspecified; G47.00 Insomnia, unspecified

== ENCOUNTER 2023-01-27 13:35 | Inpatient (IN) | payer MEDICAID, OTHER ==
[~2023-01-27] VITALS: Ht 160 cm; Wt 83.9 kg
[~2023-01-27 13:35] MED LIST changes: +BACL10TA2 PO; +FOLI1TAB11 PO; +LISI5TAB11 PO; +THIA100TA PO; +ZALE10CA PO
[2023-01-27] MEDS ORDERED: traZODone 50 MG TAB PO PRN (15:30)
[2023-01-27] MEDS ORDERED: MOM 30ML SUSPENSION UDC PO PRN (15:30)
[2023-01-27] MEDS ORDERED: MAALOX 30 ML SUSP *UDC PO PRN (15:30)
[2023-01-27] MEDS ORDERED: ACETAMINOPHEN TAB 650MG DOSE (2X325MG) PO PRN (15:30)
[2023-01-27] MEDS ORDERED: RAMELTEON 8 MG TAB (ROZEREM) PO SCH (21:00)
[2023-01-27] MEDS ORDERED: MIRTAZAPINE 15 MG TAB PO PRN (22:15)
[2023-01-27 22:55] VITALS: BP 149/69; TEMP 98.2; O2SAT 97
[2023-01-28] MEDS ORDERED: FOLI1TAB11 PO (01:21)
[2023-01-28] MEDS ORDERED: THIA100T7 PO (01:21)
[2023-01-28] MEDS ORDERED: LISI5TAB11 PO (01:21)
[2023-01-28] MEDS ORDERED: HOME MED LIST COMPLETE! XX SCH (01:25)
[2023-01-28] MEDS: IBUPROFEN 400MG TAB PO PRN (06:11)
[2023-01-28] MEDS: THIAMINE 100 MG TAB PO SCH (09:00)
[2023-01-28] MEDS: FOLIC ACID 1MG TAB PO SCH (09:00)
[2023-01-28] MEDS: busPIRone 5 MG TAB PO SCH ×2 (10:07→20:19)
[2023-01-28] MEDS: diphenhydrAMINE 25MG CAP PO PRN (10:07)
[2023-01-28 12:26] VITALS: BP 138/72
[2023-01-28] MEDS: lisinopriL 5 MG TAB PO SCH (12:29)
[2023-01-28] MEDS ORDERED: FUROSEMIDE 40 MG TAB PO ONE (14:40)
[2023-01-28] MEDS ORDERED: ALBUTEROL SULFATE 2.5MG/0.5ML INH NEB SOLN NEB PRN (14:40)
[2023-01-28 14:45] VITALS: BP 133/63; TEMP 97.2; O2SAT 99
[2023-01-28 17:56] VITALS: BP 114/64; TEMP 97.4; O2SAT 100
[2023-01-28 19:05] LABS: BLOOD UREA NITROGEN 22 MG/DL (9-23); CALCIUM LEVEL 8.9 MG/DL (8.5-10.1); CARBON DIOXIDE LEVEL 28 MMOL/L (20-31); CHLORIDE LEVEL 105 MMOL/L (98-107); CREATININE FOR GFR 0.69 MG/DL (0.55-1.30); GLOMERULAR FILTRATION RATE > 60.0 (>51); GLUCOSE, FASTING 107 MG/DL (60-100); POTASSIUM SERUM 3.6 MMOL/L (3.5-5.1); SODIUM LEVEL 142 MMOL/L (136-145)
[2023-01-28 20:17] VITALS: BP 139/89
[2023-01-28] MEDS: MIRTAZAPINE 15 MG TAB PO SCH (20:19)
[2023-01-28] MEDS: PRAZOSIN 1 MG CAP PO SCH (20:19)
[2023-01-29 06:40] VITALS: BP 123/68; TEMP 98; O2SAT 95
[2023-01-29] MEDS: busPIRone 5 MG TAB PO SCH ×2 (08:14→21:24)
[2023-01-29] MEDS: lisinopriL 5 MG TAB PO SCH (08:14)
[2023-01-29] MEDS: IBUPROFEN 400MG TAB PO PRN (08:15)
[2023-01-29 08:19] LABS: CHOLESTEROL RISK RATIO 4.31 (<5); LDL CHOLESTEROL 153.6 MG/DL (<100)
[2023-01-29] MEDS: THIAMINE 100 MG TAB PO SCH (08:21)
[2023-01-29] MEDS: FOLIC ACID 1MG TAB PO SCH (08:21)
[2023-01-29] MEDS ORDERED: CALCIUM CARBONATE 500 MG CHEW U/D PO PRN (14:20)
[2023-01-29 20:16] VITALS: BP 120/63; TEMP 98.1
[2023-01-29] MEDS: PRAZOSIN 1 MG CAP PO SCH (21:23)
[2023-01-29] MEDS: MIRTAZAPINE 15 MG TAB PO SCH (21:24)
[2023-01-30] MEDS: busPIRone 5 MG TAB PO SCH ×2 (10:19→20:55)
[2023-01-30] MEDS: lisinopriL 5 MG TAB PO SCH (10:19)
[2023-01-30] MEDS: FOLIC ACID 1MG TAB PO SCH (10:19)
[2023-01-30] MEDS: THIAMINE 100 MG TAB PO SCH (10:19)
[2023-01-30] MEDS: PRAZOSIN 1 MG CAP PO SCH (20:56)
[2023-01-30] MEDS: MIRTAZAPINE 7.5MG PER 1/2 TABLET PO SCH (20:56)
[2023-01-31 06:01] VITALS: BP 113/64; TEMP 96.7; O2SAT 98
[2023-01-31] MEDS: THIAMINE 100 MG TAB PO SCH (09:00)
[2023-01-31] MEDS: busPIRone 5 MG TAB PO SCH ×3 (09:00→21:38)
[2023-01-31] MEDS: lisinopriL 5 MG TAB PO SCH (09:00)
[2023-01-31] MEDS: FOLIC ACID 1MG TAB PO SCH (09:00)
[2023-01-31 16:57] VITALS: BP 124/58; TEMP 96.4
[2023-01-31] MEDS: PRAZOSIN 1 MG CAP PO SCH (21:38)
[2023-01-31] MEDS: MIRTAZAPINE 7.5MG PER 1/2 TABLET PO SCH (21:39)
[2023-02-01 06:21] VITALS: BP 119/67; O2SAT 94
[2023-02-01] MEDS: THIAMINE 100 MG TAB PO SCH (08:11)
[2023-02-01] MEDS: FOLIC ACID 1MG TAB PO SCH (08:11)
[2023-02-01] MEDS: lisinopriL 5 MG TAB PO SCH (08:14)
[2023-02-01] MEDS: busPIRone 5 MG TAB PO SCH ×2 (08:15→21:37)
[2023-02-01 16:07] VITALS: BP 136/78; O2SAT 97
[2023-02-01] MEDS: diphenhydrAMINE 25MG CAP PO PRN (16:25)
[2023-02-01] MEDS: MIRTAZAPINE 7.5MG PER 1/2 TABLET PO SCH (21:37)
[2023-02-01] MEDS: PRAZOSIN 1 MG CAP PO SCH (21:37)
[2023-02-02 06:00] VITALS: BP 130/71; TEMP 98.4; O2SAT 99
[2023-02-02] MEDS: THIAMINE 100 MG TAB PO SCH (07:54)
[2023-02-02] MEDS: FOLIC ACID 1MG TAB PO SCH (07:54)
[2023-02-02 07:56] VITALS: BP 140/82
[2023-02-02] MEDS: busPIRone 5 MG TAB PO SCH (07:56)
[2023-02-02] MEDS: lisinopriL 5 MG TAB PO SCH (07:56)
[2023-02-02 08:50] VITALS: BP 146/78; O2SAT 99
[2023-02-02] MEDS ORDERED: FUROSEMIDE 40 MG TAB PO SCH (09:55)
[2023-02-02] MEDS ORDERED: MINI1CAP PO (11:23)
[2023-02-02] MEDS ORDERED: MIRT-10 PO (11:23)
[2023-02-02] MEDS ORDERED: BUSP5TA PO (11:23)
[2023-02-02] MEDS ORDERED: FURO40TA2 PO (11:23)
[2023-02-02] MEDS ORDERED: ALB2.5NEB NEB (11:23)
== END 2023-02-02 14:10 | disposition home or self-care (01) | DRG 751 ==
LOC: M ED INP 15:27 → M PSY 21:00
PROVIDERS: ADMIT Student in an Organized Health Care Education/Training Program; ATTEND Student in an Organized Health Care Education/Training Program
DX: F33.9 Major depressive disorder, recurrent, unspecified (principal); F43.10 Post-traumatic stress disorder, unspecified; G80.9 Cerebral palsy, unspecified; R06.01 Orthopnea; I10 Essential (primary) hypertension; F10.10 Alcohol abuse, uncomplicated; Z91.51 Personal history of suicidal behavior; Z79.899 Other long term (current) drug therapy; Z88.1 Allergy status to other antibiotic agents; Z88.5 Allergy status to narcotic agent; Z88.8 Allergy status to other drugs, medicaments and biological substances

== ENCOUNTER → 2023-03-24 | Outpatient (REF) | payer OTHER ==
[~2023-03-24] MED LIST changes: +ALB2.5NEB NEB; +BUSP5TA PO; +FURO40TA2 PO; +MIRT-10 PO; +THIA100T7 PO
== END ==
LOC: M PLALAB 16:39
PROVIDERS: ATTEND Advanced Practice Midwife
DX: R87.612 Low grade squamous intraepithelial lesion on cytologic smear of cervix (LGSIL) (principal); R87.810 Cervical high risk human papillomavirus (HPV) DNA test positive

== ENCOUNTER → 2023-05-24 | Outpatient (CLI) | payer OTHER | LOC: M WHC 14:00 | PROVIDERS: ATTEND Advanced Practice Midwife | DX: Z12.31 Encounter for screening mammogram for malignant neoplasm of breast (principal) ==

== ENCOUNTER → 2023-08-19 | Day surgery (SDC) | payer OTHER ==
[~2023-08-19] VITALS: Ht 160 cm; Wt 81.6 kg
[~2023-08-19] MED LIST changes: +ALBU2.5V10; +GLYCOPYRROLATE INJ 0.2 MG/ML 2 ML VIAL As Ordered ONE; +HYDR-3713 PO; -KLON1TAB PO; +KLON1TAB13 PO; +LIDOCAINE 2% MDV 20ML VIAL As Ordered ONE; +MAALOX 30 ML SUSP *UDC PO ONE; +METOPROLOL 5 MG/5 ML VIAL As Ordered ONE; +MIDAZOLAM INJ 2MG/2ML VIAL As Ordered ONE; +OMEP40CA5 PO; +ONDANSETRON 4MG 2ML VIAL As Ordered ONE; +SENN-121 PO; +THERTAB52 PO; +TUMS500C PO; +diphenhydrAMINE 12.5MG/5ML ELIXIR UDC PO ONE; +fentaNYL 100 MCG/2 ML INJECTION As Ordered ONE
[2023-08-19 08:50] VITALS: TEMP 96.9
[2023-08-19] MEDS: NS 1,000 ML IV ONE (08:50)
[2023-08-19] MEDS: LEVALBUTEROL 1.25MG 0.5ML CONCENTRATE NEB NEB STA (09:00)
[2023-08-19] MEDS: MIDAZOLAM INJ 2MG/2ML VIAL IV ONE (09:02)
[2023-08-19 09:04] VITALS: BP 131/92
[2023-08-19] MEDS: METOPROLOL 5 MG/5 ML VIAL IV PRN (09:04)
[2023-08-19] MEDS: LABETALOL 100MG/20ML VIAL IV PRN (09:04)
[2023-08-19] MEDS: PROMETHAZINE 25MG/ML 1ML VIAL IV PRN (09:40)
[2023-08-19 10:50] VITALS: BP 120/57; O2SAT 97
== END | disposition home or self-care (01) ==
LOC: M OPP 07:16
PROVIDERS: ATTEND Internal Medicine Gastroenterology
DX: K63.5 Polyp of colon (principal); K64.8 Other hemorrhoids; K57.30 Diverticulosis of large intestine without perforation or abscess without bleeding; K59.00 Constipation, unspecified; K44.9 Diaphragmatic hernia without obstruction or gangrene; R12 Heartburn; R11.10 Vomiting, unspecified; Z79.899 Other long term (current) drug therapy; Z88.5 Allergy status to narcotic agent; Z88.8 Allergy status to other drugs, medicaments and biological substances
CPT/HCPCS: 43235; 45385; 88305; 93005; J1920; J2250; J2405; J2550; J3010

== ENCOUNTER → 2023-09-16 | Outpatient (CLI) | payer OTHER ==
[~2023-09-16] MED LIST changes: -GLYCOPYRROLATE INJ 0.2 MG/ML 2 ML VIAL As Ordered ONE; -LIDOCAINE 2% MDV 20ML VIAL As Ordered ONE; -MAALOX 30 ML SUSP *UDC PO ONE; -METOPROLOL 5 MG/5 ML VIAL As Ordered ONE; -MIDAZOLAM INJ 2MG/2ML VIAL As Ordered ONE; -ONDANSETRON 4MG 2ML VIAL As Ordered ONE; -diphenhydrAMINE 12.5MG/5ML ELIXIR UDC PO ONE; -fentaNYL 100 MCG/2 ML INJECTION As Ordered ONE
== END ==
LOC: M RAD 10:17
PROVIDERS: ATTEND Internal Medicine Hematology
DX: R10.30 Lower abdominal pain, unspecified (principal)

== ENCOUNTER → 2024-04-03 | Outpatient (CLI) | payer OTHER ==
[~2024-04-03] MED LIST changes: +E-Z-PAQUE 96% w/w SUSP 176GM BTL As Ordered ONE
== END ==
LOC: M RAD 10:33
PROVIDERS: ATTEND Surgery
DX: K44.9 Diaphragmatic hernia without obstruction or gangrene (principal)

== ENCOUNTER → 2024-05-02 | Outpatient (CLI) | payer OTHER ==
[~2024-05-02] MED LIST changes: -E-Z-PAQUE 96% w/w SUSP 176GM BTL As Ordered ONE
[2024-05-02 14:55] LABS: HEMOGLOBIN A1c 5.1 % (4.0-6.0)
[2024-05-02 15:16] LABS: ALBUMIN 3.9 G/DL (3.2-5.2); ALKALINE PHOSPHATASE 76 U/L (35-104); ALT/SGPT 11 U/L (7.0-40); AST/SGOT 11 U/L (<34); BILIRUBIN,TOTAL 1.1 MG/DL (0.3-1.2); BLOOD UREA NITROGEN 29 MG/DL (9-23); CALCIUM LEVEL 9.8 MG/DL (8.5-10.1); CARBON DIOXIDE LEVEL 26 MMOL/L (20-31); CHLORIDE LEVEL 109 MMOL/L (98-107); CHOLESTEROL LEVEL 238 MG/DL (<200); CHOLESTEROL RISK RATIO 3.92 (<5); CREATININE FOR GFR 0.76 MG/DL (0.55-1.30); GLOMERULAR FILTRATION RATE > 60.0 (>51); GLUCOSE, FASTING 97 MG/DL (60-100); HDL CHOLESTEROL 60.7 MG/DL (>40); LDL CHOLESTEROL 158.1 MG/DL (<100); NON-HDL-C 177.3 MG/DL; POTASSIUM SERUM 4.1 MMOL/L (3.5-5.1); SODIUM LEVEL 143 MMOL/L (136-145); TRIGLYCERIDES LEVEL 96 MG/DL (<150)
== END ==
LOC: M PLALAB 10:34
PROVIDERS: ATTEND Student in an Organized Health Care Education/Training Program
DX: Z13.1 Encounter for screening for diabetes mellitus (principal); Z13.220 Encounter for screening for lipoid disorders

== ENCOUNTER → 2024-06-12 | Outpatient (REF) | payer OTHER | LOC: M SFHCPLAZ 17:06 | PROVIDERS: ATTEND Student in an Organized Health Care Education/Training Program | DX: J06.9 Acute upper respiratory infection, unspecified (principal) ==

== ENCOUNTER 2024-08-17 09:26 | Day surgery (SDC) | payer OTHER ==
[~2024-08-17] VITALS: Ht 160 cm; Wt 75.3 kg
[~2024-08-17 09:26] MED LIST changes: +ATOR1TAB21 PO; +MULTTAB61 PO; +PANT40TA29 PO; +PHEN30CA21 PO
[2024-08-17] MEDS ORDERED: LIDOCAINE 2% 100MG/5ML SDV (FOR ANES.) As Ordered ONE (09:39)
[2024-08-17] MEDS ORDERED: SUGAMMADEX SODIUM 500 MG/5 ML VIAL (BRIDION) As Ordered ONE (09:39)
[2024-08-17] MEDS ORDERED: ROCURONIUM BROMIDE 50MG/5ML VIAL As Ordered ONE (09:39)
[2024-08-17] MEDS ORDERED: ONDANSETRON 4MG 2ML VIAL As Ordered ONE (09:39)
[2024-08-17] MEDS ORDERED: KETOROLAC 60MG 2ML VIAL As Ordered ONE (09:39)
[2024-08-17] MEDS ORDERED: propofoL 200 MG/20 ML VIAL As Ordered ONE (09:40)
[2024-08-17] MEDS ORDERED: MIDAZOLAM INJ 2MG/2ML VIAL As Ordered ONE (09:47)
[2024-08-17] MEDS ORDERED: fentaNYL 100 MCG/2 ML INJECTION As Ordered ONE (09:47)
[2024-08-17 10:20] LABS: HEMATOCRIT 42.7 % (36.0-47.0); HEMOGLOBIN 13.6 g/dl (12.0-15.5); MEAN CORPUSCULAR HEMOGLOBIN 26.7 pg (27.0-33.0); MEAN CORPUSCULAR HGB CONC 31.9 g/dl (32.0-36.5); MEAN CORPUSCULAR VOLUME 83.7 fl (80.0-96.0); PLATELET COUNT, AUTOMATED 319 10^3/uL (150-450); WHITE BLOOD COUNT 9.3 10^3/uL (4.0-10.0)
[2024-08-17] MEDS: LR 1,000 ML IV SCH (11:23)
[2024-08-17] MEDS ORDERED: PHENYLephrine 500MCG 5ML (100MCG/ML) SYRINGE As Ordered ONE (11:52)
[2024-08-17] MEDS ORDERED: ACETAMINOPHEN 1000MG/100ML IV BAG As Ordered ONE (12:01)
[2024-08-17] MEDS ORDERED: HYDROmorphone HCL 2MG/ML 1ML VIAL As Ordered ONE (12:13)
[2024-08-17] MEDS ORDERED: LR 1,000 ML IV SCH ×2 (12:30→13:05)
[2024-08-17] MEDS ORDERED: oxyCODONE 5MG TAB PO PRN (12:30)
[2024-08-17] MEDS: ONDANSETRON 4MG 2ML VIAL IV PRN (13:02)
[2024-08-17] MEDS: fentaNYL 100 MCG/2 ML INJECTION IV PRN (13:02)
[2024-08-17] MEDS ORDERED: PERCOCET 5MG/325MG TAB PO PRN (13:05)
[2024-08-17] MEDS: HYDROMORPHONE HCL 0.5 MG/ 0.5 ML SYRINGE IV PRN (13:24)
[2024-08-17] MEDS ORDERED: IBUP-1022 PO (14:13)
[2024-08-17] MEDS ORDERED: HYDR-3713 PO (14:15)
[2024-08-17] MEDS: ALBUTEROL SULFATE 2.5MG/0.5ML INH NEB SOLN NEB ONE (14:34)
[2024-08-17 14:45] VITALS: BP 131/96; TEMP 96.9; O2SAT 97
== END 2024-08-17 16:32 | disposition home or self-care (01) ==
LOC: M SDC 09:26
PROVIDERS: ATTEND Specialist
DX: N80.01 Superficial endometriosis of the uterus (principal); N80.329 Endometriosis of the posterior cul-de-sac, unspecified depth; D25.2 Subserosal leiomyoma of uterus; N80.399 Endometriosis of the pelvic peritoneum, other specified sites, unspecified depth; R10.2 Pelvic and perineal pain; J45.909 Unspecified asthma, uncomplicated; E78.00 Pure hypercholesterolemia, unspecified; Z79.899 Other long term (current) drug therapy; F17.210 Nicotine dependence, cigarettes, uncomplicated; G80.9 Cerebral palsy, unspecified; Z90.89 Acquired absence of other organs; Z88.5 Allergy status to narcotic agent; Z88.8 Allergy status to other drugs, medicaments and biological substances; Z88.1 Allergy status to other antibiotic agents; G43.909 Migraine, unspecified, not intractable, without status migrainosus
CPT/HCPCS: 58662; 85027; 86850; 86900; 86901; J0131; J0665; J1100; J1171; J1885; J2250; J2371; J2405; J3010

== ENCOUNTER 2024-09-22 11:53 | Day surgery (SDC) | payer OTHER ==
[~2024-09-22] VITALS: Ht 160 cm; Wt 74.8 kg
[~2024-09-22 11:53] MED LIST changes: +IBUP-1022 PO; +ZOLP-533 PO
[2024-09-22] MEDS ORDERED: LIDOCAINE VISCOUS 2% SOLN 15ML UDC As Ordered ONE (12:53)
[2024-09-22 13:39] VITALS: BP 133/86; TEMP 98.8; O2SAT 98
== END 2024-09-22 13:39 | disposition home or self-care (01) ==
LOC: M OPP 11:53
PROVIDERS: ATTEND Surgery
DX: K44.9 Diaphragmatic hernia without obstruction or gangrene (principal)

== ENCOUNTER → 2024-12-14 | Outpatient (CLI) | payer OTHER | LOC: M WHC 13:25 | PROVIDERS: ATTEND Advanced Practice Midwife | DX: Z12.31 Encounter for screening mammogram for malignant neoplasm of breast (principal); R92.323 Mammographic fibroglandular density, bilateral breasts ==

== ENCOUNTER → 2024-12-14 | Outpatient (REF) | payer OTHER ==
[2024-12-17 00:52] LABS: HPV APTIMA Detected (Not Detected)
== END ==
LOC: M PLALAB 15:15
PROVIDERS: ATTEND Advanced Practice Midwife
DX: Z12.4 Encounter for screening for malignant neoplasm of cervix (principal)

== ENCOUNTER → 2024-12-29 | Outpatient (CLI) | payer OTHER | LOC: M EKG 10:23 | PROVIDERS: ATTEND Anesthesiology | DX: Z01.818 Encounter for other preprocedural examination (principal); R94.31 Abnormal electrocardiogram [ECG] [EKG] ==

== ENCOUNTER 2025-01-09 06:05 | Day surgery (SDC) | payer OTHER ==
[~2025-01-09] VITALS: Ht 160 cm; Wt 77.5 kg
[2025-01-09] MEDS ORDERED: LR 1,000 ML IV SCH (06:10)
[2025-01-09] MEDS ORDERED: dexAMETHasone 4 MG/ML 1 ML VIAL As Ordered ONE (06:53)
[2025-01-09] MEDS ORDERED: ROCURONIUM BROMIDE 50MG/5ML VIAL As Ordered ONE (06:53)
[2025-01-09] MEDS ORDERED: ONDANSETRON 4MG 2ML VIAL As Ordered ONE (06:53)
[2025-01-09] MEDS ORDERED: SUGAMMADEX SODIUM 500 MG/5 ML VIAL As Ordered ONE (06:53)
[2025-01-09] MEDS ORDERED: KETOROLAC 30 MG/ML 1 ML VIAL As Ordered ONE (06:53)
[2025-01-09] MEDS ORDERED: LIDOCAINE 2% 100 MG/5 ML SDV (FOR ANES.) As Ordered ONE (06:53)
[2025-01-09] MEDS ORDERED: HYDROmorphone HCL 2 MG/ML 1 ML VIAL As Ordered ONE (06:54)
[2025-01-09] MEDS ORDERED: MIDAZOLAM INJ 2 MG/2 ML VIAL As Ordered ONE (06:55)
[2025-01-09] MEDS: HEPARIN SOD 5000 UNITS/ML 1 ML VIAL/SYRINGE As Ordered ONE (07:56)
[2025-01-09] MEDS ORDERED: PHENYLephrine 500MCG 5ML (100MCG/ML) SYRINGE As Ordered ONE (08:07)
[2025-01-09] MEDS ORDERED: ceFAZolin SOD 2 GM IV ONCE IV ONE (08:50)
[2025-01-09] MEDS ORDERED: HEPARIN SOD 5000 UNITS/ML 1 ML VIAL/SYRINGE SQ ONE (08:50)
[2025-01-09] MEDS ORDERED: LABETALOL 100 MG/20 ML VIAL As Ordered ONE (08:54)
[2025-01-09] MEDS ORDERED: MORPHINE 2 MG/ML 1 ML VIAL IV PRN (10:40)
[2025-01-09] MEDS: HYDROMORPHONE HCL 0.5 MG/0.5 ML SYRINGE IV PRN (11:12)
[2025-01-09] MEDS ORDERED: NS 500 ML IV ONE (11:55)
[2025-01-09 12:15] VITALS: BP 127/70; TEMP 97.3; O2SAT 96
== END 2025-01-09 13:00 | disposition home or self-care (01) ==
LOC: M SDC 06:05
PROVIDERS: ATTEND Surgery
DX: K44.9 Diaphragmatic hernia without obstruction or gangrene (principal); Z88.5 Allergy status to narcotic agent; Z88.1 Allergy status to other antibiotic agents; Z88.8 Allergy status to other drugs, medicaments and biological substances
CPT/HCPCS: 43235; 43281; C1781; J0665; J0666; J0690; J1100; J1171; J1885; J1920; J2175; J2250; J2371; J2405; J2765; J3010; S2900

== ENCOUNTER → 2025-02-02 | Outpatient (REF) | payer OTHER ==
[~2025-02-02] MED LIST changes: -IBUP-1022 PO; +IBUP600T42 PO
== END ==
LOC: M PLALAB 14:03
PROVIDERS: ATTEND Advanced Practice Midwife
DX: R87.810 Cervical high risk human papillomavirus (HPV) DNA test positive (principal)

== ENCOUNTER → 2025-04-09 | Outpatient (CLI) | payer OTHER ==
[~2025-04-09] MED LIST changes: +E-Z-GAS II EFFERVESCENT PACKET (SODIUM BICARB./CITRIC ACID/SIMETHICONE) As Ordered ONE; +E-Z-HD 98% w/w 340 GM SUSP BTL As Ordered ONE; +E-Z-PAQUE 96% w/w SUSP 176 GM BTL As Ordered ONE; +ZOLP10TA11 PO; -ZOLP10TA2 PO
== END ==
LOC: M RAD 09:33
PROVIDERS: ATTEND Surgery
DX: K44.9 Diaphragmatic hernia without obstruction or gangrene (principal)